=== PATIENT | male | born 2000 | race Caucasian/White ===

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

== ENCOUNTER 2022-01-25 18:36 | Emergency (ER) | payer BC, SELFPAY ==
--- NOTE | ~2022-01-25 | US_ITS ---
EXAMINATION: US scrotum doppler DATE: 01/25/2022 19:33 INDICATION: Bilateral testicular pain, r/o torsion . TECHNIQUE: Grayscale and Doppler ultrasound images of the testes were obtained. COMPARISON: None. FINDINGS: The right testis measures 5.4 x 2.0 x 3.4 5.2 x 2.0 x 3.2 cm. The left testis measures cm. No testicular mass. There is normal vascular flow to both testes. The right epididymis is normal with normal vascular flow. The left epididymis is normal with normal vascular flow. There is no varicocele or hydrocele IMPRESSION: Normal scrotal ultrasound findings. Reviewed, dictated and finalized at location K.
[2022-01-25 18:40] VITALS: BP 131/77; PULSE 98; RESP 18; TEMP 36.6; O2SAT 99
[2022-01-25 18:41] VITALS: BP 134/76; PULSE 84; RESP 16; TEMP 36.7; O2SAT 100
--- NOTE | 2022-01-25 19:31 | ED.MALEGU ---
HPI - Male Genitourinary General Chief complaint: Urogenital-Male Stated complaint: severe testicular pain Time Seen by Provider: 01/25/22 18:59 History of Present Illness HPI Narrative: 21-year-old male presents the emergency room for evaluation of bilateral testicular pain and dysuria. Patient states he has been experiencing bilateral testicular pain for 5 days, stating it has been progressively getting worse. Patient also comments that he began experiencing sharp pain when he voids. Patient reports he was having unprotected intercourse approximately 4 weeks ago. No injury or trauma to his testicles. Patient denies any penile discharge. Related Data Allergies Allergy/AdvReac Type Severity Reaction Status Date / Time No Known Allergies Allergy Verified 08/03/21 12:57 Review of Systems Review of Systems: CONSTITUTIONAL: Denies fever, chills, or sweats. EYES: Denies visual changes, redness, or discharge. ENT: Denies rhinorrhea, congestion, sore throat, or otalgia. CARDIOVASCULAR: Denies chest pain, palpitations, or edema. RESPIRATORY: Denies cough or dyspnea. GASTROINTESTINAL: Denies abdominal pain, nausea, vomiting, or diarrhea. GENITOURINARY: Reports dysuria SKIN: Denies rash or itching. MUSCULOSKELETAL: Denies back pain, joint pain, or myalgia. NEUROLOGIC: Denies headache, numbness, dizziness, or weakness. PSYCHIATRIC: Denies anxiety or depression. [facility] Past Medical History Medical History (Updated 01/25/22 @ 20:03 by Gustavo Lenz APRN) Right arm fracture Surgical History Surgical History No significant past surgical history Social History Social History Smoking status: Never smoker Exam Narrative: GENERAL: Well-appearing, well-nourished, no physical limitations, and in no acute distress. HEAD: Normocephalic, atraumatic. EYES: Conjunctivae normal, PERRLA and EOMI. CHEST: Clear to auscultation. No respiratory distress. No wheezes rales or rhonchi. HEART: Regular rate and rhythm. No murmur heard. Normal peripheral pulses. ABDOMEN: Soft, nontender, nondistended, normal active bowel sounds. : Normal external male exam. Negative Prehn sign. Positive cremasteric reflex bilaterally EXTREMITIES: Normal range of motion. No edema. No clubbing or cyanosis SKIN: Warm, dry, no rash. No noted wounds NEURO: No focal deficits. Alert and oriented x3. MAEW. CN's II-XI intact bilaterally, normal gait PSYCH: Cooperative. Normal mood and affect. Course Vital Signs Vital signs: Vital Signs Temperature 36.6 C 01/25/22 18:40 Pulse Rate 98 01/25/22 18:40 Respiratory Rate 18 01/25/22 18:40 Blood Pressure 131/77 01/25/22 18:40 Pulse Oximetry 99 01/25/22 18:40 Oxygen Delivery Room Air 01/25/22 18:40 Temperature 36.7 C 01/25/22 18:41 Pulse Rate 84 01/25/22 18:41 Respiratory Rate 16 01/25/22 18:41 Blood Pressure 134/76 01/25/22 18:41 Pulse Oximetry 100 01/25/22 18:41 Oxygen Delivery Room Air 01/25/22 18:41 MDM - Male Genitourinary Lab Data Labs: Lab Results 01/25/22 01/25/22 01/25/22 Range/Units 19:18 19:18 19:19 Urine Color Yellow (Yellow) Urine Appearance Cloudy H (Clear) Urine pH 9.0 (5.0-9.0) Ur Specific [place] 1.016 (1.001-1.035) Urine Protein Negative (Negative) mg/dL Urine Glucose (UA) Negative (Negative) mg/dL Urine Ketones Negative (Negative) mg/dL Ur Blood (Man) Negative (Negative) Urine Nitrate Negative (Negative) Urine Bilirubin Negative (Negative) Urine Urobilinogen Negative (<2.0) mg/dL Leukocyte Esterase Rfl Negative (Negative) JAYSON/UL Urine RBC 0-2 (0-2) /hpf Urine WBC 0-3 /hpf Urine Bacteria Trace /hpf Urine Mucus Rare /lpf C.trachomatis RNA (TMA) Pending N.gonorrhoeae RNA (TMA) Pending T. vaginalis Amp RNA Pending Discha
[2022-01-25 19:32] LABS: Add Urine Microscopic? YES; Appearance Urine Cloudy (Clear); Bacteria Urine Trace /hpf; Bilirubin Urine Negative (Negative); Blood Urine Negative (Negative); Color Urine Yellow (Yellow); Glucose Urine UA Negative (Negative); Ketones Urine Negative (Negative); Leukocyte Esterase Ur Negative LEU/UL (Negative); Mucus Urine Rare /lpf; Nitrate Urine Negative (Negative); Protein Urine Negative (Negative); RBC Urine 0-2 /hpf (0-2); Specific Grav Ur 1.016 (1.001-1.035); Urobilinogen Urine Negative mg/dL (<2.0); WBC Urine 0-3 /hpf
== END 2022-01-25 20:09 | disposition home or self-care (01) ==
PROVIDERS: Emergency Medicine; Emergency Provider Nurse Practitioner Family
DX: R30.0 Dysuria (principal); N50.812 Left testicular pain; N50.811 Right testicular pain
CPT/HCPCS: 76870; 81001; 87491; 87591; 87661; 93976; 99284

== ENCOUNTER 2022-11-03 07:50 | Observation (INO) | payer BC, SELFPAY ==
[2022-11-03] VITALS (21 sets, daily range): BP systolic 135–139; BP diastolic 62–74; PULSE 68–95; RESP 10–20; TEMP 36.6–36.8; O2SAT 97–100; BMI 27.5
--- NOTE | ~2022-11-03 | XR_ITS ---
EXAMINATION: XR UGI water soluble wo kub DATE: 11/03/2022 11:48 INDICATION: Right abdominal pain. TECHNIQUE: The patient drank water-soluble contrast. Fluoroscopy of the esophagus, stomach, and proxi mal small bowel was performed. Fluoroscopy exposure time was 0.5 minutes. The total number of images was 18. COMPARISON: CT abdomen and pelvis 11/03/2022 FINDINGS: There is no mass or stricture of the esophagus. Esophageal motility is normal. There is no hiatal hernia. The stomach and proximal small bowel show normal folding patterns. IMPRESSION: 1. Normal upper gastrointestinal series. Normal duodenum. Reviewed, dictated and finalized at location A.
--- NOTE | ~2022-11-03 | CT_ITS ---
EXAMINATION: CT abdomen pelvis w con DATE: 11/03/2022 09:38 INDICATION: Right lower quadrant abdominal pain for one day TECHNIQUE: Computed tomography (CT) of the abdomen and pelvis was performed with 100 CC Omnipaque 350 intravenous contrast. Automated exposure control and iterative reconstruction technique were employe d. Exam dose: 489.82 mGy-cm total exam DLP. COMPARISON: None. FINDINGS: The lung bases are clear. Normal heart size. No pericardial or pleural effusion. The liver, gallbladder, bile ducts, spleen, pancreas and pancreatic duct and adrenal glands appear no rmal. No renal space-occupying mass lesion is evident. There is subtle diminished enhancement of the anterior aspect of lower pole right kidney and posterio r upper right kidney. There is some adjacent perinephric stranding, apparently originating from the a scending colon/hepatic flexure where there is suggestion of diverticula tuberculosis. The findings gonzalez ggest diverticulitis of the ascending colon/hepatic flexure, with probable secondary inflammatory jackie nges of the kidney. Less likely considerations include duodenal ulcer with possible rupture, acute py elonephritis. No urinary tract calculus or hydroureteronephrosis. The urinary bladder and prostate gland and semina l vesicles are unremarkable, but there is mild free fluid in the dependent mid and right lower pelvis . Additionally, there are some shoddy nonenlarged mesenteric and right lower quadrant lymph nodes. The appendix is identified and appears unremarkable. No bowel obstruction or intraperitoneal free air. Normal caliber of the abdominal aorta. No intraperitoneal or retroperitoneal or pelvic mass lesion or adenopathy or ascites is noted. Bilateral L5 pars interarticularis defects. With associated grade 1 anterolisthesis at L5-S1. IMPRESSION: Pericolic fat stranding at the ascending colon/hepatic flexure, apparently due to divert iculitis; Differential diagnosis includes duodenal ulcer, with possible rupture, duodenitis, right py elonephritis. Mild free fluid in the mid and right pelvis. The appendix appears normal. Bilateral L5 pars interarticularis defects with grade 1 anterolisthesis at L5-S1 Reviewed, dictated and finalized at Location A. Reviewed, dictated and finalized at location L. IMPRESSION: Pericolic fat stranding at the ascending colon/hepatic flexure, ap parently due to diverticulitis; Differential diagnosis includes duodenal ulcer, with possible rupture, duodenitis, right pyelonephritis. Mild free fluid in the mid and right pelvis. The appendix appears normal. Bilateral L5 pars interarticularis defects with grade 1 anterolisthesis at L5-S 1
--- NOTE | 2022-11-03 08:23 | ED.ABDPAIN ---
HPI - Abdominal Pain General Chief Complaint: Abdominal Pain Stated Complaint: abd pain Time Seen by Provider: 11/03/22 08:02 History of Present Illness HPI narrative: Patient reports that yesterday morning he was having pretty severe pain throughout his entire abdomen, loss of appetite, he was able to eat very little last night, and this morning felt nauseous, pain was much better, though it did seem to go down to his right lower quadrant. No fevers or chills. Has never had appendicitis before Related Data Allergies Allergy/AdvReac Type Severity Reaction Status Date / Time No Known Allergies Allergy Verified 11/03/22 08:10 Review of Systems Review of Systems: CONST: No fever. HEENT: No sore throat C/V: No chest pain RESP: No cough GI: Reports abdominal pain, nausea, vomiting : No dysuria. M/S: No joint pain. SKIN: No rash. NEURO: [No headache or focal numbness or weakness] PSYCH: [No depression] [facility] Past Medical History Medical History (Updated 11/03/22 @ 11:34 by Haritha Garcia MD) Right arm fracture Surgical History Surgical History No significant past surgical history Social History Social History Smoking status: Never smoker Exam Narrative: EXAMINATION OF ORGAN SYSTEMS/BODY AREAS: Constitutional: Vital signs per nursing GENERAL:[No acute distress, non-toxic appearing.] HEAD: Normal with no signs of head trauma. EYES: EOMI, conjunctiva normal ENT: Hearing grossly intact LUNGS: Nonlabored breathing. HEART: [Regular rate and rhythm] ABD: [Soft], very minimally tender to deep palpation right abdomen, not peritonitic EXT: Normal range of motion SKIN: [No rashes or lesions.] NEURO: [Alert and oriented x 3. No gross focal sensory or strength deficits.] PSYCH: Normal affect Course Vital Signs Vital signs: Vital Signs Temperature 98.2 F 11/03/22 08:09 Pulse Rate 82 11/03/22 08:09 Respiratory Rate 16 11/03/22 08:09 Blood Pressure 138/62 11/03/22 08:09 Pulse Oximetry 99 11/03/22 08:09 Temperature 98.2 F 11/03/22 08:09 Pulse Rate 82 11/03/22 08:09 Respiratory Rate 16 11/03/22 08:09 Blood Pressure 138/62 11/03/22 08:09 Pulse Oximetry 99 11/03/22 08:09 MDM - Abdominal Pain MDM Narrative Medical decision making narrative: Electronic medical record was reviewed. Patient presented to the ED with complaint of [abdominal pain and vomiting, initially very severe yesterday all over and today has moved to the right side]. Vitals [were within acceptable limits]. Physical exam revealed soft abdomen, nonperitoneal, with some tenderness to the right side. Based on the patient's history and physical exam, my differential includes but is not limited to [gastritis, gastroenteritis, cholecystitis, pancreatitis, appendicitis]. [IV access was established by nursing staff. Patient was given zofran, IV fluids ]. CBC, BMP, lipase, LFTs, bilirubin and alk phos were obtained. Labs were pertinent for leukocytosis of 12.7, normal urinalysis]. [Decision was made to obtain a CT-abdomen to evaluate for acute abdominal process. CT-abdomen per radiology interpretation shows fat stranding at the ascending colon/hepatic flexure, apparently due to diverticulitis, cannot rule out ulcer with possible rupture, duodenitis, pyelonephritis.] Doubt pyelonephritis without urinary symptoms and normal UA, it seems very unlikely for diverticulitis given his age, I am more concerned about possible ulcer, I have called general surgery on-call Dr. Rodriguez who agrees to admission of the patient, recommend starting Zosyn, and obtaining upper GI series. I discussed the findings and plan with the patient who is agreeable to it. Family at bedside. Lab Data 11/03/22 08:36 11/03/22 08:36 Labs: Lab Results 11/03/22 11/03/22 Range/Units 08:36 08:38 WBC 12.7
[2022-11-03 08:44] LABS: Basophils Absolute Auto 0.1 K/mm3 (0.0-0.1); Basophils Percent Auto 0.6 % (0.2-1.2); Eosinophils Absolute Auto 0.4 K/mm3 (0-0.3); Hematocrit 46.2 % (42.0-52.0); Hemoglobin 14.9 g/dL (14.0-18.0); Immature Granulocyte Absolute 0.07 K/mm3 (0.00-0.031); Immature Granulocyte Percent A 0.6 % (0-0.5); Lymphocytes Absolute Auto 1.07 K/mm3 (0.9-3.2); Lymphocytes Percent Auto 8.5 % (18.3-44.2); Mean Corpuscular HGB Conc 32.3 g/dl (32-36); Mean Corpuscular Hemoglobin 28.5 pg (26-34); Mean Corpuscular Volume 88.3 fl (80-100); Mean Platelet Volume 9.4 fl (7.4-10.4); Monocytes Absolute Auto 1.5 K/mm3 (0.1-0.6); Monocytes Percent Auto 12.1 % (2.6-8.5); Neutrophils Absolute Auto 9.5 K/mm3 (1.3-6.7); Neutrophils Percent Auto 75.2 % (45.5-73.1); Platelet Count Result 343 k/mm3 (150-375); Red Blood Count 5.23 M/mm3 (4.6-6.20); Red Cell Distribution Width 13.2 % (11.5-14.5); White Blood Count 12.7 K/mm3 (4.5-10.0)
[2022-11-03 08:46] LABS: Appearance Urine Clear (Clear); Bilirubin Urine Negative (Negative); Blood Urine Negative (Negative); Color Urine Yellow (Yellow); Glucose Urine UA Negative (Negative); Ketones Urine 1+ mg/dL (Negative); Leukocyte Esterase Ur Negative LEU/UL (Negative); Nitrate Urine Negative (Negative); Protein Urine Negative (Negative); Specific Grav Ur 1.009 (1.001-1.035); Urobilinogen Urine 0.2 mg/dL (<2.0); pH Urine 5.5 (5.0-9.0)
[2022-11-03 08:51] LABS: Add Urine Microscopic? NO
[2022-11-03 08:54] LABS: Alanine Aminotransferase 31 U/L (6-50); Albumin Level 4.7 g/dL (3.7-5.6); Alkaline Phosphatase 87 U/L (58-237); Anion Gap 8 mmol/L (8-16); Aspartate Amino Transferase 33 U/L (17-59); Bilirubin,Total 0.8 mg/dL (0.2-1.3); Blood Urea Nitrogen 13 mg/dL (8-21); Calcium 9.3 mg/dL (8.9-10.7); Carbon Dioxide 28 mmol/L (22-30); Chloride 102 mmol/L (98-107); Estimated CRCL calculation 120 ml/min; Estimated Glomerular Filt Rate > 60; Glucose 98 mg/dL (65-110); Lipase 249 U/L (23-300); Potassium 3.8 mmol/L (3.4-5.0); Sodium 138 mmol/L (134-143)
[2022-11-03] MEDS: PIPERACILLN/TAZ 3.375GM/NS50ML 3.375 GM/50 ML BAG IVPB ×3 (11:43→23:47)
[2022-11-03] MEDS: ONDANSETRON INJ 4 MG/2 ML VIAL IV PUSH (12:18)
[2022-11-03] MEDS: LACTATED RINGERS 1,000 ML 999 ML IV CONT (12:18)
--- NOTE | 2022-11-03 12:53 | PC.NURSE ---
called admission report to JENNY Lacy for rm [id number] @[id number]
--- NOTE | 2022-11-03 13:38 | ADMGEN ---
This patient, Feliz Baron, was admitted to 3 [facility] Surg Room 312-01 at 1310. Patient/family oriented to hospital policies and general routines including ID bracelet, bed and alarms, visiting hours, pain management, procedures, bathroom and other care routines, personal items, smoking policy, room service/diet, and visiting hours. Information on how to activate the Rapid Response Team has been discussed. Patient/Family are encouraged to report perceived risks to care and to ask questions if they do not understand what they are told or what they should do.
[2022-11-03] MEDS: IBUPROFEN IV 800 MG/200 ML 800 MG/200 ML BAG 400 MG IVPB (15:39)
[2022-11-03] MEDS: LACTATED RINGERS 1,000 ML 80 ML IV CONT (18:46)
--- NOTE | 2022-11-03 21:44 | PM.IMHP ---
H&P: HPI History of Present Illness Date/Time: 11/03/22 16:44 Chief Complaint: abd pain Narrative: Patient is an 21-year-old man who yesterday morning noticed periumbilical abdominal pain right after he awakened. Pain was pretty severe but then became better. It never completely went away. He had some nausea but no vomiting. It improved enough that he was able to sleep but was awakened again this morning with the pain back and seeming to moved to the right lower quadrant. He was understandably concerned that he may have appendicitis and came to the emergency room. He received some ibuprofen in the emergency room and antibiotics. He was feeling much better when I went to see him this evening. He had had no appetite since this pain began yesterday but at this time is very hungry. He has very minimal periumbilical and right lower quadrant pain at this time. He had a CT scan of the abdomen pelvis which showed some inflammatory changes in the distal ascending colon and hepatic flexure. There was concern over duodenal ulcer or duodenal perforation. An upper GI was done which showed no evidence of ulcer or perforation. He is admitted now for probable hepatic flexure diverticulitis. Review of Systems Review of Systems: All systems reviewed & are unremarkable except as noted in HPI and below (HPI and those items noted below) Constitutional: Constitutional: Denies chills and Denies fever(s) Cardiovascular: Cardiovascular: Denies chest pain, Denies diaphoresis, Denies dyspnea and Denies paroxysmal nocturnal dyspnea Respiratory: Respiratory: Denies chest congestion, Denies cough and Denies dyspnea Gastrointestinal: Gastrointestinal: Reports as per HPI, Reports abdominal pain, Reports nausea and Denies vomiting Integumentary/Breasts: Skin/Breast: Denies lesions and Denies rash [facility] Past Medical History Medical History (Updated 11/03/22 @ 11:34 by Haritha Garcia MD) Right arm fracture Surgical History Surgical History No significant past surgical history Social History Social History Smoking status: Smoker, status unknown Tobacco type: e-cigarettes/vaping Alcohol intake: current Drinks per week: 20 Substance use: never Substance use type: does not use Lack of Transportation: No Lack of Food: Never True Current Housing: I Have Housing Concerned About Future Housing: No Difficulty Paying Gas/Electric Bills: No Difficulty Paying for Meds: No Currently Unemployed: No Education: High School Diploma/GED Difficulty w/ Childcare or Family Care: No Spiritual care concerns: No Meds Home Medications and Allergies Home Medications Medication Instructions Recorded Confirmed Type No Home Medications 11/03/22 11/03/22 History Allergies Allergy/AdvReac Type Severity Reaction Status Date / Time No Known Allergies Allergy Verified 11/03/22 08:10 Vital Signs Vital Signs - 24 hr 11/03/22 08:09 11/03/22 08:00 11/03/22 08:15 Temperature 36.8 C Pulse Rate 82 82 95 Respiratory Rate 16 14 15 Blood Pressure 138/62 Pulse Oximetry 99 100 Oxygen Delivery 11/03/22 08:30 11/03/22 09:43 11/03/22 09:45 Temperature Pulse Rate 88 94 94 Respiratory Rate 19 17 14 Blood Pressure Pulse Oximetry 100 97 Oxygen Delivery 11/03/22 10:07 11/03/22 10:15 11/03/22 10:31 Temperature Pulse Rate 81 87 78 Respiratory Rate 12 18 13 Blood Pressure Pulse Oximetry 99 100 98 Oxygen Delivery 11/03/22 10:49 11/03/22 11:01 11/03/22 11:15 Temperature Pulse Rate 73 71 68 Respiratory Rate 15 19 20 Blood Pressure Pulse Oximetry 97 97 99 Oxygen Delivery 11/03/22 11:43 11/03/22 11:46 11/03/22 12:02 Temperature Pulse Rate 85 84 91 Respiratory Rate 15 19 Blood Pressure Pulse Oximetry 100 100 100 Oxygen Delivery 11/03/22 12:19 10/16
[2022-11-04 07:39] LABS: Basophils Percent Auto 0.5 % (0.2-1.2); Eosinophils Absolute Auto 0.4 K/mm3 (0-0.3); Hematocrit 43.6 % (42.0-52.0); Hemoglobin 13.9 g/dL (14.0-18.0); Immature Granulocyte Absolute 0.01 K/mm3 (0.00-0.031); Immature Granulocyte Percent A 0.1 % (0-0.5); Lymphocytes Absolute Auto 1.91 K/mm3 (0.9-3.2); Lymphocytes Percent Auto 26.1 % (18.3-44.2); Mean Corpuscular HGB Conc 31.9 g/dl (32-36); Mean Corpuscular Hemoglobin 28.3 pg (26-34); Mean Corpuscular Volume 88.8 fl (80-100); Mean Platelet Volume 9.6 fl (7.4-10.4); Monocytes Absolute Auto 0.9 K/mm3 (0.1-0.6); Monocytes Percent Auto 11.9 % (2.6-8.5); Neutrophils Absolute Auto 4.1 K/mm3 (1.3-6.7); Neutrophils Percent Auto 55.4 % (45.5-73.1); Platelet Count Result 320 k/mm3 (150-375); Red Blood Count 4.91 M/mm3 (4.6-6.20); Red Cell Distribution Width 13.2 % (11.5-14.5); White Blood Count 7.3 K/mm3 (4.5-10.0)
[2022-11-04 07:54] LABS: Anion Gap 3 mmol/L (8-16); Blood Urea Nitrogen 9 mg/dL (8-21); Calcium 8.9 mg/dL (8.9-10.7); Carbon Dioxide 32 mmol/L (22-30); Chloride 103 mmol/L (98-107); Estimated CRCL calculation 108 ml/min; Estimated Glomerular Filt Rate > 60; Glucose 94 mg/dL (65-110); Potassium 4.1 mmol/L (3.4-5.0); Sodium 138 mmol/L (134-143)
[2022-11-04] MEDS: LACTATED RINGERS 1,000 ML 80 ML IV CONT (08:20)
[2022-11-04 08:30] VITALS: BP 132/64; PULSE 84; RESP 16; TEMP 36.6; O2SAT 100
[2022-11-04] MEDS: PIPERACILLN/TAZ 3.375GM/NS50ML 3.375 GM/50 ML BAG IVPB (12:17)
--- NOTE | 2022-11-04 13:15 | PM.DS ---
DS: Admitting Diagnosis Discharge Date 11/04/2022 Admitting Diagnosis Hepatic flexure diverticulitis DS: Discharge Diagnosis Discharge Diagnosis (1) Diverticulitis of ascending colon: Code(s): K57.32 - Diverticulitis of large intestine without perforation or abscess without bleeding Status: Acute DS: Summary Hospital Course Hospital Course: Patient came to the emergency room having experience periumbilical pain this seemed to moved to the right lower quadrant. He was noted to have mid abdominal tenderness and an elevated white blood cell count. CT scan, however, did not show appendicitis but rather showed inflammatory changes in the ascending colon and hepatic flexure of the colon suggestive of ascending colon diverticulitis. Patient received IV antibiotics and analgesics in the ER and was observed over night. His pain went away fairly quickly and on the day after admission he was completely pain-free eating solid food and having no problems at all. He is discharged now on 2002 on oral antibiotics and regular diet. He will follow up with Dr. Rodriguez if problems return otherwise he will return to work on Monday and follow up with his primary care physician as needed. Status at Discharge Overall status at discharge: patient is back to baseline Time Spent with Patient Time attestation: Total time spent providing and/or coordinating discharge services: Time spent: Less than 30 minutes DS: Data Data Completed and Pending Labs on day of discharge: Labs from last 24 hours 11/04/22 07:00 WBC 7.3 RBC 4.91 Hgb 13.9 L Hct 43.6 MCV 88.8 MCH 28.3 MCHC 31.9 L RDW 13.2 Plt Count 320 MPV 9.6 Immature Gran % (Auto) 0.1 Neut % (Auto) 55.4 Lymph % (Auto) 26.1 [place] % (Auto) 11.9 H Eos % (Auto) 6.0 H Baso % (Auto) 0.5 Lymph # (Auto) 1.91 [place] # (Auto) 0.9 H Eos # (Auto) 0.4 H Baso # (Auto) 0.0 Abs Immat Gran (auto) 0.01 Absolute Neuts (auto) 4.1 Absolute Nucleated RBC 0.0 Nucleated RBC % 0.0 Sodium 138 Potassium 4.1 Chloride 103 Carbon Dioxide 32 H Anion Gap 3 L BUN 9 Creatinine 1.00 Estim Creat Clear Calc 108 Estimated GFR > 60 Glucose 94 Calcium 8.9 Discharge Plan Discharge Discharging Clinician: Mil Rodriguez Anticipated Discharge Date/Time: 11/04/22 13:18 Patient Disposition: Home, Self-Care Activity: may shower and as tolerated Diet: regular Discharge Instructions: Resume normal activities as tolerated Take Augmentin oral antibiotics until they are gone Call Dr. Rodriguez or go to the emergency room if abdominal pain should recur. Okay to return to work on Monday. Regular diet with no restrictions at this time. Patient Instructions: Antibiotic Form, How to Stop Smoking (GEN) Stand Alone Forms: General Discharge Information Follow-up/Referrals: UNKNOWN,DOCTOR [Primary Care Provider] - Follow Up with Primary Dr (Call Dr. Rodriguez or go to the emergency room if abdominal pain should return.) Discharge Medications: New amoxicillin-pot clavulanate 875-125 mg tablet 1 tablet PO Q12H Qty: 12 0RF No Action No Home Medications Date of admission: 11/03/22 11:25 Primary Care Provider: UNKNOWN,DOCTOR Admitting Provider: Mil Rodriguez Attending physician on admission: Mil Rodriguez Condition: Improved
== END 2022-11-04 14:38 | disposition home or self-care (01) ==
LOC: ANHED 11:34 → ANH3MEDSUR 12:37
PROVIDERS: Admitting Provider Surgery; Emergency Provider Emergency Medicine; Visit Provider Surgery
DX: K57.32 Diverticulitis of large intestine without perforation or abscess without bleeding (principal); R63.0 Anorexia; Z68.53 Body mass index [BMI] pediatric, 85th percentile to less than 95th percentile for age; F17.290 Nicotine dependence, other tobacco product, uncomplicated; F10.90 Alcohol use, unspecified, uncomplicated
CPT/HCPCS: 36415; 74177; 74240; 80048; 80053; 81003; 83690; 85025; 96361; 96365; 96367; 96375; 99285; G0378; J1741; J2405; J2543; J7120; Q9967

== ENCOUNTER 2023-03-04 00:20 | Emergency (ER) | payer BC, SELFPAY ==
[2023-03-04] VITALS (33 sets, daily range): BP systolic 107–147; BP diastolic 55–95; PULSE 82–115; RESP 10–23; TEMP 36.6; O2SAT 98–100
--- NOTE | 2023-03-04 01:12 | PC.NURSE ---
Pt ambulatory to restroom with steady gait. Declines non slip socks or putting his shoes back on for safety.
--- NOTE | 2023-03-04 01:40 | ECG_ITS ---
Measurements Intervals [place] Rate: 94 P: 56 ME: 174 QRS: 87 QRSD: 98 T: 39 QT: 341 QTc: 427 Interpretive Statements SINUS RHYTHM NORMAL ECG NO PREVIOUS ECG AVAILABLE FOR COMPARISON Electronically Signed On 03-04-2023 7:41:14 BUSHEL WORKER by [place] Calderon D.O.
[2023-03-04 02:03] LABS: Appearance Urine Clear (Clear); Bilirubin Urine Negative (Negative); Blood Urine Negative (Negative); Color Urine Yellow (Yellow); Glucose Urine UA Negative (Negative); Ketones Urine Negative (Negative); Leukocyte Esterase Ur Negative LEU/UL (Negative); Nitrate Urine Negative (Negative); Protein Urine Negative (Negative); Specific Grav Ur 1.001 (1.001-1.035); Urobilinogen Urine 0.2 mg/dL (<2.0)
[2023-03-04 02:04] LABS: Basophils Absolute Auto 0.1 K/mm3 (0.0-0.1); Basophils Percent Auto 0.8 % (0.2-1.2); Eosinophils Absolute Auto 0.1 K/mm3 (0-0.3); Hematocrit 42.5 % (42.0-52.0); Immature Granulocyte Absolute 0.02 K/mm3 (0.00-0.031); Immature Granulocyte Percent A 0.2 % (0-0.5); Lymphocytes Absolute Auto 1.28 K/mm3 (0.9-3.2); Lymphocytes Percent Auto 14.1 % (18.3-44.2); Mean Corpuscular HGB Conc 32.9 g/dl (32-36); Mean Corpuscular Hemoglobin 27.9 pg (26-34); Mean Corpuscular Volume 84.8 fl (80-100); Mean Platelet Volume 9.2 fl (7.4-10.4); Monocytes Absolute Auto 0.9 K/mm3 (0.1-0.6); Monocytes Percent Auto 10.2 % (2.6-8.5); Neutrophils Absolute Auto 6.7 K/mm3 (1.3-6.7); Neutrophils Percent Auto 73.7 % (45.5-73.1); Platelet Count Result 384 k/mm3 (150-375); Red Blood Count 5.01 M/mm3 (4.6-6.20); Red Cell Distribution Width 12.8 % (11.5-14.5); White Blood Count 9.1 K/mm3 (4.5-10.0)
[2023-03-04 02:13] LABS: Acetaminophen < 10 ug/mL (10-30); Ethanol 90 mg/dL (<10); Salicylate < 1.0 mg/dL (2-20)
[2023-03-04 02:14] LABS: Alanine Aminotransferase 23 U/L (6-50); Albumin Level 4.6 g/dL (3.5-5.1); Alkaline Phosphatase 64 U/L (38-126); Anion Gap 9 mmol/L (8-16); Aspartate Amino Transferase 25 U/L (17-59); Bilirubin,Total 0.3 mg/dL (0.2-1.3); Blood Urea Nitrogen 10 mg/dL (9-20); Calcium 9.3 mg/dL (8.4-10.2); Carbon Dioxide 32 mmol/L (22-30); Chloride 96 mmol/L (98-107); Estimated CRCL calculation 137 ml/min; Estimated Glomerular Filt Rate > 60; Glucose 104 mg/dL (65-110); Potassium 3.5 mmol/L (3.4-5.0); Sodium 137 mmol/L (137-145)
[2023-03-04 02:23] LABS: Amphetamine Screen Urine Negative (Negative); Barbiturate Screen Urine Negative (Negative); Benzodiazepines Screen Urine Negative (Negative); Cannabinoid Screen Urine Negative (Negative); Cocaine Screen Urine Negative (Negative); Methadone Screen Urine Negative (Negative); Opiate Screen Urine Negative (Negative); Phencyclidine Screen Urine Negative (Negative)
[2023-03-04 02:38] LABS: SARS-CoV-2 RNA PCR Negative (Negative)
[2023-03-04 02:38] LABS: Add Urine Microscopic? NO
--- NOTE | 2023-03-04 06:20 | ED.GENADULT ---
HPI - General Adult General Chief complaint: Unspecified Stated complaint: possible od Time Seen by Provider: 03/04/23 05:13 Source: patient and family Limitations: no limitations History of Present Illness HPI narrative: Patient is a 22-year-old male presented to the emergency department for overdose. Patient received 8 mg of Narcan prior to arrival which may patient responsive again. Patient was who found slumped over by mom and mom administered Narcan with patient awake and oriented upon EMS arrival. Patient admits to snorting synthetic opioid earlier tonight, denies use of methadone. Patient also admits to drinking 4 shots of Tequila around the same time. Patient states he has a history of 0. Use and has been trying to get himself off it tried to quit approximately 4 days ago but he keeps experiencing symptoms of withdrawal so he takes a small amount and thinks he may have overdone at this time. Patient has never been on medication assisted therapy for. Patient does have a primary care physician. Patient denies thoughts of wanting to harm himself or intentional drug overdose. Patient denies any other medication use. Patient denies any recent injuries, recent illness, chest pain, shortness of breath, cough, fever, abdominal pain, nausea, vomiting, diarrhea, headache. Patient states he overall feels well at this time and does not have any current complaints. Patient denies ever having rehabilitation services. Related Data Allergies Allergy/AdvReac Type Severity Reaction Status Date / Time No Known Allergies Allergy Verified 11/03/22 08:10 Review of Systems Review of Systems: A 10 system review of systems was completed on the patient and is negative except for what is stated in the HPI. Nursing and ancillary documentation was reviewed. [facility] Past Medical History Medical History (Updated 03/05/23 @ 00:01 by Kaylie Light) Right arm fracture Surgical History Surgical History No significant past surgical history Social History Social History Smoking status: Smoker, status unknown Tobacco type: e-cigarettes/vaping Alcohol intake: current Drinks per week: 20 Substance use: never Substance use type: does not use Lack of Transportation: No Lack of Food: Never True Current Housing: I Have Housing Concerned About Future Housing: No Difficulty Paying Gas/Electric Bills: No Difficulty Paying for Meds: No Currently Unemployed: No Education: High School Diploma/GED Difficulty w/ Childcare or Family Care: No Spiritual care concerns: No Comments At time of signature, I have reviewed and agree with nursing past medical, surgical, social and family history unless otherwise noted. Please see the nursing chart for further information. There is no relevant family history pertinent to the presenting complaint. Exam Narrative: CONST: No acute distress. Well nourished. HENMT: Head is normocephalic and atraumatic. Moist mucous membranes. No posterior oropharynx erythema. EYES: No conjunctival icterus, injection, or pallor. PERRL. NECK: No meningeal signs. RESP: Able to speak in full sentences. Normal respiratory effort. CTAB. CARDIO: Regular rate. Regular rhythm. 2+ DP and radial pulses bilaterally. GI: Nondistended. No tenderness to palpation. Soft. : No CVA tenderness to palpation. SKIN: No rashes or lesions noted on exposed skin. NEURO: Oriented x3. Moves all extremities. EXTREM/MSK/BACK: No pedal edema. PSYCH: Normal affect. Course Vital Signs Vital signs: Vital Signs Temperature 97.9 F 03/04/23 00:20 Pulse Rate 115 H 03/04/23 00:20 Respiratory Rate 20 03/04/23 00:20 Blood Pressure 146/78 H 03/04/23 00:20 Pulse Oximetry 100 03/04/23 00:20 Oxygen Delivery Room Air 03/04/23 00:20 Temperature 97.9 F 03/04/23 00:20 Pulse Rate 91
== END 2023-03-04 06:46 | disposition home or self-care (01) ==
PROVIDERS: Emergency Provider Student in an Organized Health Care Education/Training Program
DX: T42.71XA Poisoning by unspecified antiepileptic and sedative-hypnotic drugs, accidental (unintentional), initial encounter (principal); F17.290 Nicotine dependence, other tobacco product, uncomplicated; Z11.52 Encounter for screening for COVID-19
CPT/HCPCS: 36415; 80053; 80307; 81003; 84443; 85025; 87635; 93005; 99284

== ENCOUNTER 2024-05-27 16:12 | Emergency (ER) | payer BC, SELFPAY ==
--- OUTSIDE RECORDS SUMMARY | 2024-05-27 16:31 | XMS_ITS | Patient Health Summary ---
Author Organization [facility] Address [address] [place] [address] Care Team Providers Care Risk Consulting Treasury Director Name Role Phone Gemma Yap MD Primary Care Provider + Gemma Yap MD Unavailable [phone] Charanjit Beckwith MD Unavailable Note from [facility],non-owned Affiliates and Associated Physician Practices is amultiple site organization consisting of ambulatory clinics and hospital sitesin [place], [place], [place] and [place]. This disclosure is being madepursuant to the Care Everywhere program and may not contain all information available regarding this patient. Last updated 18.[facility] Allergies No known active allergies Medications * Be aware that medications may not be up to date on this document. Alwaysverify current medications with the patient. * cetirizine (ZYRTEC) 10 MG chew tablet Take 10 mg by mouth once daily * minocycline (MINOCIN) 100 MG capsule Take 100 mg by mouth once daily Reasons: Common Acne * SULFACLEANSE 8/ 8-4 %(Started 09/02/2019) * EPIDUO FORTE 0.3-2.5 %(Started 09/12/2019) Active Problems Problem Noted Date Diagnosed Date Closed fracture of lower end of right radius with routine healing 01/26/2017 Closed fracture of radius 12/20/2016 Peripheral tear of medial me niscus of right knee as current injury Immunizations * INFLUENZA VACCINE, TRIV. (AFLURIA, FLUZONE TRIVALENT; 6MO+) (IIV3)(Given 03/20/2007, 02/13/2006, 02/10/2005, 04/14/2004, 03/16/2004) * DTaP VACCINE IM (6wk-6yrs)(Given 12/18/2007, 03/16/2004, 06/09/2003, 04/08/2003, 02/11/2003) * HEP A PEDS 2 DOSE(Given 02/13/2006, 12/07/2004) * HEP B VACCINE, PED/ADOL(Given 06/09/2003, 01/14/2003, 2002) * HIB-PRP-T 4 DOSE(Given 03/16/2004, 12/11/2003, 06/09/2003, 04/08/2003, 02/11/2003) * Human Papilloma Virus Ninevalent Vaccine(Given 10/27/2015, 02/21/2015, 11/27/2014) * INFLUENZA VACCINE, QUADR. (FLUZONE; FLULAVAL; FLUARIX; AFLURIA QUADRIVALENT; 6MO+), 0.5 ML (IIV4)(Given 01/26/2017, 01/25/2016, 02/21/2015) * BARBARA VACCINE QUAD LAIV4 PF NASAL(Given 01/27/2014, 02/12/2013) * MENINGOCOCCAL CONJUGATE (MCV4P)(Given 12/11/2019) * MENINGOCOCCAL MCV4O(Given 01/27/2014) * MMR(Given 12/18/2007, 03/16/2004) * PNEUMOCOCCAL PCV7 CONJ, PEDS(Given 12/11/2003, 06/09/2003, 04/08/2003, 02/11/2003) * POLIO IPV(Given 12/18/2007, 04/08/2003, 02/11/2003) * TDAP (7yrs+)(Given 01/27/2014) * VARICELLA(Given 12/18/2007, 12/11/2003) Social History Tobacco Use Types Packs/Day Years Used Date Smoking Tobacco: Never Smokeless Tobacco: Never Comments:non smoking home Alcohol Use Standard Drinks/Week Comments Never 0 (1 standard drink = 0.6 oz pur e alcohol) AUDIT-C Answer Date Recorded Q1: How often do you have a drink containing alc ohol? Never 11/05/2019 Average Number of Drinks Not on file 020 Frequency of Binge Drinking Not on file 10/16 Sex and Gender Information Value Date Recorded Sex Assigned at Not on file Gender Identity Not on file Sexual Orientation Not on file Last Filed Vital Signs Vital Sign Reading Time Taken Comments Blood Pressure 110/66 11/22/2020 12:40 PM CDT Pulse 82 11/22/2020 12:40 PM CDT Temperature 37 C (98.6 F) 11/22/2020 12:40 PM CDT Respiratory Rate 18 11/22/2020 12:40 PM CDT Oxygen Saturation 99% 11/19/2019 11:02 AM CDT Inhaled Oxygen Concentration - - Weight 72.6 kg (160 lb) 11/22/2020 12:40 PM CDT Height 180.3 cm (5' 11 ) 11/22/2020 12:40 PM CDT Body Mass Index 22.32 11/22/2020 12:40 PM CDT Medical Devices Implanted Type Area Tyre Finisher And Examiner Device Identifier Shelf Expiration Date Model / Serial / Lot Oral Sut Truespan Othcrd Peek Nabsb 2 Implanted:Qty: 3 on 11/07/2019 by Charanjit Beckwith MD at [facility] [employer] 03/16/2022 [id number] / / [id number] Procedures * MRI KNEE RIGHT WO CONTRAST(Performed 11/13/2020) Performed for Peripheral tear of medial meniscus of right knee as current injury, subsequent encounter * ARTHROSCOPY KNEE WITH MENISCECTOMY (MEDIAL/LATERAL)(Performed 11/07/2019) Performed for Peripheral tear of medial meniscus of right knee as current injury, sequela * LARYNGEAL MASK AIRWAY(Performed 11/07/2019) * SARS-COV-2 (COVID-19) IN HOUSE(Performed 11/04/2019) Performed for Peripheral tear of medial meniscus of right knee as current injury, initial encounter * MRI KNEE RIGHT WO CONTRAST(Performed 10/21/2019) Performed for Acute pain of right knee * XR KNEE RIGHT 4VW OR MORE(Performed 10/11/2019) Performed for Acute pain of right knee * INFLUENZA A+B - POINT OF CARE (AMB)(Performed 04/30/2017) Performed for Influenza * IMAGING/RADIOLOGY/XRAY RESULTS ORDER(Performed 02/14/2017) * IMAGING/RADIOLOGY/XRAY RESULTS ORDER(Performed 01/11/2017) * IMAGING/RADIOLOGY/XRAY RESULTS ORDER(Performed 01/11/2017) * XR WRIST RIGHT 2VW(Performed 01/04/2017) Performed for Other closed fracture of distal end of right radius with routine healing, subsequent encounter * XR WRIST RIGHT 2VW(Performed 12/12/2016) Performed for Injury, other and unspecified, elbow, forearm, and wrist * XR WRIST RIGHT 3VW OR MORE(Performed 12/12/2016) Performed for Injury, other and unspecified, elbow, forearm, and wrist Results * MRI KNEE RIGHT WO CONTRAST (11/13/2020 7:33 AM CDT) Only the most recent of2 resultswithin the time period is included. Anatomical Region Laterality Modality Lower Extremity Magnetic Resonan ce 11/13/2020 6:53 AM CDT Impressions 11/13/2020 9:23 AM CDT Posterior horn medial meniscal tear. Appearance may be in part postsurgical if applicable. Reading Radiologist: Yunier Crockett on 11/13/2020 at 9:23 AM Narrative 11/13/2020 9:23 AM CDT INDICATION: Meniscal tear COMPARISON: 10/21/2019 TECHNIQUE: Multiplanar, multisequence MR images of the right knee. FINDINGS: There is no fracture or abnormal bone marrow signal. The articular cartilage has normal signal and thickness. The anterior and posterior cruciate ligaments are intact. The medial collateral ligament is normal. The lateral collateral ligament and posterolateral corner structures are intact. There is a tear of the posterior horn of the medial meniscus extending to the inferior surface. Lateral meniscus appears intact. The extensor mechanism is intact. There is a small joint effusion. Procedure Note Yunier Crockett, - 11/13/2020 INDICATION: Meniscal tear COMPARISON: 10/21/2019 TECHNIQUE: Multiplanar, multisequence MR images of the right knee. FINDINGS: There is no fracture or abnormal bone marrow signal. The articularcartilage has normal signal and thickness. The anterior and posterior cruciate ligaments are intact. The medial collateral ligament is normal. The lateral collateral ligamentand posterolateral corner structures are intact. There is a tear of the posterior horn of the medial meniscus extending tothe inferior surface. Lateral meniscus appears intact. The extensor mechanism is intact. There is a small joint effusion. IMPRESSION Posterior horn medial meniscal tear. Appearance may be in partpostsurgical if applicable. Reading Radiologist: Yunier Crockett on 11/13/2020 at 9:23 AM Charanjit Beckwith MD MR ORDERABLES * LARYNGEAL MASK AIRWAY (11/07/2019 10:33 AM CDT) Narrative Anna Banerjee APRN-NURSE SUPERVISOR - 11/07/2019 10:33 AM CDT Anna Banerjee APRN-CRNA 11/07/2019 11:30 AM LMA Placement Procedure/LDA Note: Patient Location: OR. LMA Insertion Date/Time: 11/07/2019 10:21 AM Procedure: LMA. Pretreatment: 100% O2 Patient position: sniffing. Mask Ventilation: easy Type: LMA Size: 4 Number of Attempts: 1. Cuff volume (mL): 10 Placement verified by: direct visualization, bilateral breath sounds and CO2 monitor Procedure Start Time: 11/07/2019 10:21 AM. Procedure End Time: 11/07/2019 11:30 AM. Procedure Total Time: 69.03 minutes. Staff Section Anesthesia Provider: Anna Banerjee, NOAH-NURSE SUPERVISOR, Performed the procedure Provider #1: Odell Llanes MD, Performed the procedure. Odell Llanes MD GENERAL ANESTHESIA ORDERABLES * SARS-COV-2 (COVID-19) IN HOUSE (11/04/2019 7:38 AM CDT) COVID-19 PCR Not detected Not detected, Invalid 11/04/2019 2:15 PM CDT [facility] Microbiology SPECIMEN FROM NASOPHARYNGEAL STRUCTURE / Unknown Collection / Unknown 11/04/2019 7:38 AM CDT 11/04/2019 7:38 AM CDT Narrative [facility] - 11/04/2019 2:15 PM CDT This nucleic acid amplification assay performance was validated by [facility]. This test has been authorized by the Food and Drug administration (FDA)under an Emergency Use Authorization (EUA). This test has been validated in accordance with the FDA's guidance document Policy for Diagnostic Testing in Laboratories Certified to perform High Complexity Testing under CLIA prior to Emergency Use Authorization for Coronavirus Disease-2019 during the Public Health Emergency issued on June 15, 2019. FDA independent review of this validation is pending. This test is only authorized for the duration of time the declaration that circumstances exist justifying the authorization of emergency use of in vitro diagnostic tests for detection of SARS-CoV-2 virus and/or diagnosis of COVID-19 infection under section 564(b)(1) of the Act, 21 U.S.C 360bbb-3 (b)(1), unless the authorization is terminated or revoked sooner. Charanjit Beckwith MD LAB - MICROBIOLOGY O RDERABLES [facility] [address] [place] [address], [facility] [phone] * XR KNEE RIGHT 4VW OR MORE (10/11/2019 2:13 PM CDT) Anatomical Region Laterality Modality Lower Extremity Radiographic [place] 10/11/2019 4:14 PM CDT Impressions 10/11/2019 4:17 PM CDT Right knee effusion without fracture or other bony abnormality. >>Reading Radiologist: BERTO ANNE on 10/11/2019 at 4:17 PM Narrative 10/11/2019 4:17 PM CDT CLINICAL HISTORY: Pain in right knee COMPARISON: None PROCEDURE: 4 views of the right knee FINDINGS: Normal alignment. No fracture or other bony abnormality. A knee effusion is present. The soft tissues are otherwise normal. Procedure Note Berto Anne MD - 10/11/2019 CLINICAL HISTORY: Pain in right knee COMPARISON: None PROCEDURE: 4 views of the right knee FINDINGS: Normal alignment. No fracture or other bony abnormality. A knee effusion is present. The soft tissues are otherwise normal. IMPRESSION Right knee effusion without fracture or other bony abnormality. >>Reading Radiologist: BERTO ANNE on 10/11/2019 at 4:17 PM Charanjit Beckwith MD DIAGNOSTIC IMAGING O RDERABLES * (ABNORMAL) INFLUENZA A+B - POINT OF CARE (AMB) (04/30/2017) Influenza A Antigen Rapid Positive(A) Negative Influenza B Antigen Rapid Negative Negative Influenza Internal Control present NEGATIVE - POSITIVE Influenza Lot Number [id number] Influenza Expiration Date 01 09 2019 Other NASOPHARYNGEAL SWAB / Unknown 04/30/2017 Estela Easley ICT SALES ASSISTANT-DIRECTOR OF MARKETING LAB - POINT OF CARE ORDERABLES * IMAGING/RADIOLOGY/XRAY RESULTS ORDER (02/14/2017 11:49 PM CDT) Only the most recent of3 resultswithin the time period is included. Anatomical Region Laterality Modality Other Narrative 02/14/2017 11:49 PM CDT Ordered by an unspecified provider. Scanned Document IMAGING * XR WRIST 2 VW RIGHT (01/04/2017 9:34 PM CDT) Only the most recent of2 resultswithin the time period is included. Anatomical Region Laterality Modality Wrist / Hand Radio Fluoroscop y 01/05/2017 8:22 AM CDT Impressions 01/05/2017 8:24 AM CDT Healing distal radial metadiaphyseal fracture with increased displacement and angulation. Minimally displaced ulnar styloid fracture. Narrative 01/05/2017 8:24 AM CDT EXAMINATION: Right wrist 2 views HISTORY: Radius and ulna fractures. COMPARISON: 12/12/2016. FINDINGS: 2 collimated fluoroscopic spot images of the wrist are submitted for interpretation. The distal radial metadiaphyseal fracture is mildly angulated and displaced, increased since the prior examination. The distal fracture fragment is dorsally angulated and displaced. The distal fracture fragment is also minimally radially displaced. Callus formation is now seen at the fracture site, consistent with healing. A minimally displaced ulnar styloid fracture is reidentified. Procedure Note Janna Benitez MD - 01/05/2017 EXAMINATION: Right wrist 2 views HISTORY: Radius and ulna fractures. COMPARISON: 12/12/2016. FINDINGS: 2 collimated fluoroscopic spot images of the wrist are submitted for interpretation. The distal radial metadiaphyseal fracture is mildly angulated and displaced, increased since the prior examination. The distal fracture fragment is dorsally angulated and displaced. The distal fracture fragment is also minimally radially displaced. Callus formation is now seen at the fracture site, consistent with healing. A minimally displaced ulnar styloid fracture is reidentified. IMPRESSION Healing distal radial metadiaphyseal fracture with increased displacement and angulation. Minimally displaced ulnar styloid fracture. Mushtaq Roman MD DIAGNOSTIC IMAGIN G ORDERABLES * XR WRIST 3+ VW RIGHT (12/12/2016 9:45 PM CDT) Anatomical Region Laterality Modality Wrist / Hand Radiographic [place] 2016 7:33 AM CDT Impressions 2016 7:35 AM CDT 1. Mildly displaced distal radial metadiaphyseal fracture. 2. Nondisplaced ulnar styloid fracture. Narrative 2016 7:35 AM CDT EXAMINATION: Right wrist 3 or more views HISTORY: Soccer injury. COMPARISON: None. FINDINGS: Three-view examination of the right wrist is obtained. A mildly displaced and angulated distal radial metadiaphyseal fracture is identified. The distal fracture fragment is radially and dorsally displaced by approximately one cortical width and is minimally dorsally angulated. A nondisplaced ulnar styloid fracture is also identified. There is mild associated soft tissue edema. The joint spaces are normal. There are no radiopaque foreign bodies. Procedure Note Janna Benitez MD - 2016 EXAMINATION: Right wrist 3 or more views HISTORY: Soccer injury. COMPARISON: None. FINDINGS: Three-view examination of the right wrist is obtained. A mildly displaced and angulated distal radial metadiaphyseal fracture is identified. The distal fracture fragment is radially and dorsally displaced by approximately one cortical width and is minimally dorsally angulated. A nondisplaced ulnar styloid fracture is also identified. There is mild associated soft tissue edema. The joint spaces are normal. There are no radiopaque foreign bodies. IMPRESSION 1. Mildly displaced distal radial metadiaphyseal fracture. 2. Nondisplaced ulnar styloid fracture. Logan Mooney MD DIAGNOSTIC IMAGING O [facility] Care Teams Risk Consulting Treasury Director Relationship Specialty [place] [id number] [facility] [address] [place] [address] PCP - General Pediatrics 10/11/19 [place] [id number] [facility] [address] [place] [address] 10/11/19 [place] [id number] [facility] [address] [place], [place] [id number] Orthopedic Surgery Orthopedic Surgery 10/11/19
--- OUTSIDE RECORDS SUMMARY | 2024-05-27 16:31 | XMS_ITS | Encounter Summary ---
Author Organization [facility] Address [address] [place] [address] Care Team Providers Care Trust Accounts Supervisor Name Role Phone Gemma Yap MD Primary Care Provider + Encounter Details Date Type Department Care Team (Late [facility]) Description 03/16/2004 Outpatient [facility] Pediatrics - [facility] [address] [id number] [facility] [address] [place] [address] Keegan Bartlett MD [address] [place] [address] Social History Tobacco Use Types Packs/Day Years Used Date Smoking Tobacco: Never Assessed Sex and Gender Information Value Date Recorded Sex Assigned at Not on file Legal Sex Male 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 Gender Identity Not on file Sexual Orientation Not on file documented as of this encounter Plan of Treatment Not on file documented as of this encounter Visit Diagnoses Not on filedocumented in this encounter Additional Health Concerns Infection Onset Date Last Indicated Resolved Time R/O COVID-19 03/09/2020 03/09/2020 03/11/2020 2:31 AM PURCHASING CONTRACTING CLERK documented as of this encounter Care Teams Trust Accounts Supervisor Relationship Specialty [place] [id number] [facility] [address] [place] [address] PCP - General Pediatrics 05/22/18 documented as of this encounter
--- OUTSIDE RECORDS SUMMARY | 2024-05-27 16:31 | XMS_ITS | Encounter Summary ---
Author Organization [facility] Address [address] [place] [address] Care Team Providers Care Public Address Technician Name Role Phone Gemma Yap MD Primary Care Provider + Encounter Details Date Type Department Care Team (Late st [facility]) Description 08/06/2003 Outpatient [facility] - [facility] [address] [id number] [facility] [address] [place] [address] Keegan Bartlett MD [address] [place] [address] Social History Tobacco Use Types Packs/Day Years Used Date Smoking Tobacco: Never Assessed Sex and Gender Information Value Date Recorded Sex Assigned at Not on file Legal Sex Male 4:44 AM CENTRALIZED TRAFFIC CONTROL OPERATOR Gender Identity Not on file Sexual Orientation Not on file documented as of this encounter Plan of Treatment Not on file documented as of this encounter Visit Diagnoses Not on filedocumented in this encounter Additional Health Concerns Infection Onset Date Last Indicated Resolved Time R/O COVID-19 03/09/2020 03/09/2020 03/11/2020 2:31 AM CENTRALIZED TRAFFIC CONTROL OPERATOR documented as of this encounter Care Teams Public Address Technician Relationship Specialty [place] [address] [facility] [address] [place] [address] PCP - General Pediatrics 05/22/18 documented as of this encounter
--- OUTSIDE RECORDS SUMMARY | 2024-05-27 16:31 | XMS_ITS | Clinical Summary ---
Author Organization [facility] Address [address] [facility] [place] [address] Care Team Providers Care Literacy Teacher Name Role Phone Gemma Yap MD Primary Care Provider + Gemma Yap MD Unavailable [phone] Charanjit Beckwith MD Unavailable Source Comments [facility],non-owned Affiliates and Associated Physician Practices is amultiple site organization consisting of ambulatory clinics and hospital sitesin [place], [place], [place] and [place]. This disclosure is being madepursuant to the Care Everywhere program and may not contain all information available regarding this patient. Last updated 18.[facility] Allergies No known active allergies Medications * Be aware that medications may not be up to date on this document. Alwaysverify current medications with the patient. Medication Sig Dispensed Refills Start Date End Date Status cetirizine (ZYRTEC) 10 MG chew tablet Take 10 mg by mouth once daily Active minocycline (MINOCIN) 100 MG capsuleIndications:Acn e Vulgaris Take 100 mg by mouth once daily Reasons: Common Acne Active SULFACLEANSE 8/4 8-4 % 09/02/2019 Ac tive EPIDUO FORTE 0.3-2.5 % 09/12/2019 Ac tive Active Problems Problem Noted Date Diagnosed Date Closed fracture of lower end of right radius with routine healing 01/26/2017 Closed fracture of radius 12/20/2016 Peripheral tear of medial me niscus of right knee as current injury Immunizations Name Administration Dates Next Due INFLUENZA VACCINE, TRIV. (AF LURIA, FLUZONE TRIVALENT; 6MO+) (IIV3) 03/20/2007,02/13/2006,02/10/2005,04/14,03/16/2004 DTaP VACCINE IM (6wk-6yrs) 12/18/2007,,06/09/2003,04/08,02/11/2003 HEP A PEDS 2 DOSE 02/13/2006,12/07/2004 HEP B VACCINE, PED/ADOL 06/09/2003,01/14/2003, HIB-PRP-T 4 DOSE 03/16/2004, 4,06/09/2003,04/08,02/11/2003 Human Papilloma Virus Nineva lent Vaccine 10/27/2015,02/21/2015,11/27/2014 INFLUENZA VACCINE, QUADR. (F LUZONE; FLULAVAL; FLUARIX; AFLURIA QUADRIVALENT; 6MO+), 0.5 ML (IIV4) 01/26/2017,01/25/2016,02/21/2015 BARBARA VACCINE QUAD LAIV4 PF NASAL 01/27/2014,2012 MENINGOCOCCAL CONJUGATE (MCV4P) 12/11/2019 MENINGOCOCCAL MCV4O 01/27/2014 MMR 12/18/2007,03/16/2004 PNEUMOCOCCAL PCV7 CONJ, PEDS 12/11/2003, 06/09/2003,04/08/2003,02/11 POLIO IPV 12/18/2007,04/08/2003,02/11/2003 TDAP (7yrs+) 01/27/2014 VARICELLA 12/18/2007,12/11/2003 Family History Relation Name Status Comments Father Alive Mother Alive Social History Tobacco Use Types Packs/Day Years [...] Mass Index 22.32 11/22/2020 12:40 PM CDT Plan of Treatment Health Maintenance Due Date Last Done Comments HIV SCREENING 2017 MENINGOCOCCAL (Group B) VACC INE (1 of 2 - Standard) 2018 HEPATITIS C SCREENING 12/08/2020 COVID-19 VACCINE (2023-2 5 season) 2023 INFLUENZA VACCINE (#1) 2023 , 01/25/2016, 02/21/2015, Additional history exists DTAP/TDAP/TD VACCINES (7 - T d or Tdap) 01/28/2024 01/27/2014, 12/18/2007, 03/16/2004, Additional history exists DEPRESSION SCREENING 04/17/2024 ZOSTER VACCINE (1 of 2) 2052 HEPATITIS B VACCINE Completed 06/09/2003, 01/14/2003, 2002 PNEUMOCOCCAL VACCINE Completed 12/11/2003, 06/09/2003, 04/08/2003, Additional history exists HIB VACCINE Completed 03/16/2004, 11/16, 06/09/2003, Additional history exists HPV VACCINE Completed 10/27/2015, 10/2014, 11/27/2014 MENINGOCOCCAL VACCINE Completed 12/11/2019, 014 Medical Devices Implanted Type Area Manager Embalmer Funeral Director Device Identifier Shelf Expiration Date Model / Serial / Lot [place] Sut Truespan Othcrd Peek Nabsb 2 Implanted:Qty: 3 on 11/07/2019 by Charanjit Beckwith MD at [facility] [employer] 03/16/2022 [id number] / / [id number] Care Teams Literacy Teacher Relationship Specialty [place] [address] [address] PCP - General Pediatrics 10/11/19 [place] [address] [address] 10/11/19 [place] [address] [address] Orthopedic Surgery Orthopedic Surgery 10/11/19
--- OUTSIDE RECORDS SUMMARY | 2024-05-27 16:31 | XMS_ITS | Encounter Summary ---
Author Organization [facility] Address [address] [place] [address] Care Team Providers Care Program Specialist Name Role Phone Gemma Yap MD Primary Care Provider + Encounter Details Date Type Department Care Team (Late st [facility]) Description 06/09/2003 Outpatient [facility] Pediatrics - [facility] [address] [address] [facility] [address] [place] [address] Keegan Bartlett MD [address] [place] [address] Social History Tobacco Use Types Packs/Day Years Used Date Smoking Tobacco: Never Assessed Sex and Gender Information Value Date Recorded Sex Assigned at Not on file Legal Sex Male 4:44 AM MID TEACHER Gender Identity Not on file Sexual Orientation Not on file documented as of this encounter Plan of Treatment Not on file documented as of this encounter Visit Diagnoses Not on filedocumented in this encounter Additional Health Concerns Infection Onset Date Last Indicated Resolved Time R/O COVID-19 03/09/2020 03/09/2020 03/11/2020 2:31 AM MID TEACHER documented as of this encounter Care Teams Program Specialist Relationship Specialty [place] [address] [facility] [address] [place] [address] PCP - General Pediatrics 05/22/18 documented as of this encounter
--- OUTSIDE RECORDS SUMMARY | 2024-05-27 16:31 | XMS_ITS | Encounter Summary ---
Author Organization [facility] Address [address] [place] [address] Care Team Providers Care Plumber Assistant Name Role Phone Gemma Yap MD Primary Care Provider + Encounter Details Date Type Department Care Team (Late st [facility]) Description 2002 Outpatient Historical [facility] Pediatrics - [facility] [address] [address] [facility] [address] [place] [address] Keegan Bartlett MD [address] [place] [address] Social History Tobacco Use Types Packs/Day Years Used Date Smoking Tobacco: Never Assessed Sex and Gender Information Value Date Recorded Sex Assigned at Not on file Legal Sex Male 4:44 AM SHIP LINER Gender Identity Not on file Sexual Orientation Not on file documented as of this encounter Plan of Treatment Not on file documented as of this encounter Visit Diagnoses Not on filedocumented in this encounter Additional Health Concerns Infection Onset Date Last Indicated Resolved Time R/O COVID-19 03/09/2020 03/09/2020 03/11/2020 2:31 AM SHIP LINER documented as of this encounter Care Teams Plumber Assistant Relationship Specialty [place] [address] [facility] [address] [place] [address] PCP - General Pediatrics 05/22/18 documented as of this encounter
--- OUTSIDE RECORDS SUMMARY | 2024-05-27 16:31 | XMS_ITS | Encounter Summary ---
Author Organization [facility] Address [address] [place] [address] Care Team Providers Care Development Manager Name Role Phone Gemma Yap MD Primary Care Provider + Encounter Details Date Type Department Care Team (Late st Contact Info) Description 07/10/2006 Outpatient Historical [facility] Pediatrics - [facility] [address] [address] [facility] [address] [place] [address] Keegan Bartlett MD [address] [place] [address] Social History Tobacco Use Types Packs/Day Years Used Date Smoking Tobacco: Never Assessed Sex and Gender Information Value Date Recorded Sex Assigned at Not on file Legal Sex Male 4:44 AM IN SERVICE EDUCATOR Gender Identity Not on file Sexual Orientation Not on file documented as of this encounter Last Filed Vital Signs Vital Sign Reading Time Taken Comments Blood Pressure - - Pulse 120 07/10/2006 9:45 AM CDT Temperature 37.6 C (99.7 F) 07/10/2006 9:45 AM CDT Respiratory Rate 28 07/10/2006 9:45 AM CDT Oxygen Saturation - - Inhaled Oxygen Concentration - - Weight 16.8 kg (37 lb) 07/10/2006 9:45 AM CDT Height - - Body Mass Index - - documented in this encounter Plan of Treatment Not on file documented as of this encounter Visit Diagnoses Not on filedocumented in this encounter Additional Health Concerns Infection Onset Date Last Indicated Resolved Time R/O COVID-19 03/09/2020 03/09/2020 03/11/2020 2:31 AM IN SERVICE EDUCATOR documented as of this encounter Care Teams Development Manager Relationship Specialty [place] [address] [facility] [address] [place] [address] PCP - General Pediatrics 05/22/18 documented as of this encounter
--- OUTSIDE RECORDS SUMMARY | 2024-05-27 16:31 | XMS_ITS | Referral Summary ---
Author Organization [facility] Address [address] [facility] [place] [address] Care Team Providers Care Supply Teacher Name Role Phone Gemma Yap MD Primary Care Provider + Gemma Yap MD Unavailable [phone] Charanjit Beckwith MD Unavailable Source Comments [facility],non-owned Affiliates and Associated Physician Practices is amultiple site organization consisting of ambulatory clinics and hospital sitesin [place], [place], [place] and [place]. This disclosure is being madepursuant to the Care Everywhere program and may not contain all information available regarding this patient. Last updated 18.[facility] Allergies No known active allergies Medications * [...] IPV 12/18/2007,04/08/2003,02/11/2003 TDAP (7yrs+) 01/27/2014 VARICELLA 12/18/2007,12/11/2003 Social History Tobacco Use Types Packs/Day Years [...] Mass Index 22.32 11/22/2020 12:40 PM CDT Functional Status Functional Status Response Date of Assess ment Is person deaf or have serious hearing difficult y? No 11/07/2019 Is person blind or have serious difficulty seein g? No 11/07/2019 Does person have serious dif ficulty walking/climbing stairs? Yes 11/07/2019 Does person have difficulty dressing/bathing? No 11/07/2019 Does person have difficulty doing errands alone? No 11/07/2019 Cognitive Status Response Date of Assessm ent Does person have difficulty concentrating/remembering/making decisions? No 11/07/2019 Plan of Treatment Not on file Medical Devices Implanted Type Area Bi Manager Device Identifier Shelf Expiration Date Model / Serial / Lot [place] Sut Truespan Othcrd Peek Nabsb 2 Implanted:Qty: 3 on 11/07/2019 by Charanjit Beckwith MD at [facility] [employer] 03/16/2022 [id number] / / [id number] Care Teams Supply Teacher Relationship Specialty Start Date End Date Gemma Yap MD [address] [place] [address] [address] [place] [address] PCP - General Pediatrics 10/11/19 Gemma Yap MD [address] [place] [address] [address] [place] [address] 10/11/19 Charanjit Beckwith MD [address] [place] [address] [address] [place] [address] Orthopedic Surgery Orthopedic Surgery 10/11/19
--- OUTSIDE RECORDS SUMMARY | 2024-05-27 16:31 | XMS_ITS | Encounter Summary ---
Author Organization [facility] Address [address] [place] [address] Care Team Providers Care Pals Specialist Name Role Phone Gemma Yap MD Primary Care Provider + Encounter Details Date Type Department Care Team (Late st Contact Info) Description 04/18/2007 Outpatient Historical [facility]s - [facility] [address] [address] [facility] [address] [place] [address] Franchesca Stover CPNP [address] [facility] [address] [place] [address] Social History Tobacco Use Types Packs/Day Years Used Date Smoking Tobacco: Never Assessed Sex and Gender Information Value Date Recorded Sex Assigned at Not on file Legal Sex Male 4:44 AM TV NEWS DIRECTOR Gender Identity Not on file Sexual Orientation Not on file documented as of this encounter Last Filed Vital Signs Vital Sign Reading Time Taken Comments Blood Pressure - - Pulse 112 04/18/2007 10:45 AM TV NEWS DIRECTOR Temperature 36.8 C (98.2 F) 04/18/2007 10:45 AM TV NEWS DIRECTOR Respiratory Rate 16 04/18/2007 10:45 AM TV NEWS DIRECTOR Oxygen Saturation - - Inhaled Oxygen Concentration - - Weight 19.3 kg (42 lb 8 oz) 04/18/2007 10:45 AM TV NEWS DIRECTOR Height - - Body Mass Index - - documented in this encounter Plan of Treatment Not on file documented as of this encounter Visit Diagnoses Not on filedocumented in this encounter Additional Health Concerns Infection Onset Date Last Indicated Resolved Time R/O COVID-19 03/09/2020 03/09/2020 03/11/2020 2:31 AM TV NEWS DIRECTOR documented as of this encounter Care Teams Pals Specialist Relationship Specialty [place] [address] [facility] [address] [place] [address] PCP - General Pediatrics 05/22/18 documented as of this encounter
--- OUTSIDE RECORDS SUMMARY | 2024-05-27 16:31 | XMS_ITS | Encounter Summary ---
Author Organization [facility] Address [address] [place] [address] Care Team Providers Care Rail Manager Name Role Phone Gemma Yap MD Primary Care Provider + Encounter Details Date Type Department Care Team (Late st Contact Info) Description 05/13/2004 Outpatient Historical [facility] Pediatrics - [facility] [address] [address] [facility] [address] [place] [address] Keegan Bartlett MD [address] [place] [address] Social History Tobacco Use Types Packs/Day Years Used Date Smoking Tobacco: Never Assessed Sex and Gender Information Value Date Recorded Sex Assigned at Not on file Legal Sex Male 4:44 AM PIPE TESTING TECHNICIAN Gender Identity Not on file Sexual Orientation Not on file documented as of this encounter Last Filed Vital Signs Vital Sign Reading Time Taken Comments Blood Pressure - - Pulse 100 05/13/2004 9:00 AM PIPE TESTING TECHNICIAN Temperature 36.4 C (97.5 F) 05/13/2004 9:00 AM PIPE TESTING TECHNICIAN Respiratory Rate 28 05/13/2004 9:00 AM PIPE TESTING TECHNICIAN Oxygen Saturation - - Inhaled Oxygen Concentration - - Weight 11.8 kg (26 lb) 05/13/2004 9:00 AM PIPE TESTING TECHNICIAN Height - - Body Mass Index - - documented in this encounter Plan of Treatment Not on file documented as of this encounter Visit Diagnoses Not on filedocumented in this encounter Additional Health Concerns Infection Onset Date Last Indicated Resolved Time R/O COVID-19 03/09/2020 03/09/2020 03/11/2020 2:31 AM PIPE TESTING TECHNICIAN documented as of this encounter Care Teams Rail Manager Relationship Specialty [place] [address] [facility] [address] [place] [address] PCP - General Pediatrics 05/22/18 documented as of this encounter
--- OUTSIDE RECORDS SUMMARY | 2024-05-27 16:31 | XMS_ITS | Encounter Summary ---
Author Organization [facility] Address [address] [place] [address] Care Team Providers Care Director Occupational Name Role Phone Gemma Yap MD Primary Care Provider + Encounter Details Date Type Department Care Team (Late st [facility]) Description 09/04/2003 Outpatient Historical [facility] Pediatrics - [facility] [address] [address] [facility] [address] [place] [address] Keegan Batrlett MD [address] [place] [address] Social History Tobacco Use Types Packs/Day Years Used Date Smoking Tobacco: Never Assessed Sex and Gender Information Value Date Recorded Sex Assigned at Not on file Legal Sex Male 4:44 AM RESPIRATORY THERAPY INSTRUCTOR Gender Identity Not on file Sexual Orientation Not on file documented as of this encounter Plan of Treatment Not on file documented as of this encounter Visit Diagnoses Not on filedocumented in this encounter Additional Health Concerns Infection Onset Date Last Indicated Resolved Time R/O COVID-19 03/09/2020 03/09/2020 03/11/2020 2:31 AM RESPIRATORY THERAPY INSTRUCTOR documented as of this encounter Care Teams Director Occupational Relationship Specialty [place] [address] [facility] [address] [place] [address] PCP - General Pediatrics 05/22/18 documented as of this encounter
--- OUTSIDE RECORDS SUMMARY | 2024-05-27 16:31 | XMS_ITS | Encounter Summary ---
Author Organization [facility] Address [address] [place] [address] Care Team Providers Care Tractor Operator Helper Name Role Phone Gemma Yap MD Primary Care Provider + Encounter Details Date Type Department Care Team (Late [facility]) Description 04/08/2003 Outpatient [facility] Pediatrics - [facility] [address] [address] [facility] [address] [place] [address] Keegan Bartlett MD [address] [place] [address] Social History Tobacco Use Types Packs/Day Years Used Date Smoking Tobacco: Never Assessed Sex and Gender Information Value Date Recorded Sex Assigned at Not on file Legal Sex Male 4:44 AM CARBON FURNACE OPERATOR Gender Identity Not on file Sexual Orientation Not on file documented as of this encounter Plan of Treatment Not on file documented as of this encounter Visit Diagnoses Not on filedocumented in this encounter Additional Health Concerns Infection Onset Date Last Indicated Resolved Time R/O COVID-19 03/09/2020 03/09/2020 03/11/2020 2:31 AM CARBON FURNACE OPERATOR documented as of this encounter Care Teams Tractor Operator Helper Relationship Specialty [place] [address] [facility] [address] [place] [address] PCP - General Pediatrics 05/22/18 documented as of this encounter
--- OUTSIDE RECORDS SUMMARY | 2024-05-27 16:31 | XMS_ITS | Encounter Summary ---
Author Organization [facility] Address [address] [place] [address] Care Team Providers Care Microwave Oven Assembler Name Role Phone Gemma Yap MD Primary Care Provider + Encounter Details Date Type Department Care Team (Late st [facility]) Description 05/19/2006 Orders Only [facility] Pediatrics - [facility] [address] [address] [facility] [address] [place] [address] [place] [address] [facility] [address] [place] [address] Social History Tobacco Use Types Packs/Day Years Used Date Smoking Tobacco: Never Assessed Sex and Gender Information Value Date Recorded Sex Assigned at Not on file Legal Sex Male 4:44 AM PACKER OPERATOR AUTOMATIC Gender Identity Not on file Sexual Orientation Not on file documented as of this encounter Progress Notes * Gemma Diaz MD - 09/07/2007 4:44 PM CDT TIME:08:57 am PATIENT`S HOME PHONE: PATIENT`S WORK PHONE: PATIENT`S INSURANCE: [facility] [employer] WHO TOOK THE CALL: Usha Ko S PATIENT'S AGE: 5 yrs, 5 mths, 0 wks, 4 days GENERAL INFORMATION PATIENT STATUS: Established Patient. LAST VISIT: 02/13/06 WEIGHT: Reported weight from parent is 35 lbs. PCP: . WHO CALLED: Patient`s mother called. Patient reports no known allergies. PHARMACY NUMBER: CURRENT MEDICATIONS: Patient is currently taking no medications at the current time. PROBLEMS: EYE INFECTION: The infection is in the right eye, the infection is in the left eye. Patient's sibling was here on Monday, diagnosed with conjunctivitis, now patient has yellow drainage coming from both eyes, blood shot, itchy, matted shut this am, no other symptom's, can you rx? Sibling was rx's Vigamox. SECTION 1: DOCTOR`S RESPONSE: maximus 05/19/06 at 09:25 am MEDICATIONS: Call in to Pharmacy VIGAMOX OPHTHALMIC SOLUTION 0.5 % BOTTLES, 1 drop to affected eye tid x 1 week, 1 Dispensed, status: NEW PRESCRIPTION, 05/19/2006. FINAL ACTION: deonte 05/19/06 at 09:35 am Spoke with patient 05/19/06 at 09:35 am. cd/ma Called pharmacy at 05/19/06 at 09:35 am. cd/ma Electronically Signed by: Usha Ko on Friday, May 19, 2006 Addendum - 05/20/2006 07:42 am called out meds to diff. pharmacy Electronically Signed by: Norah Naranjo on Saturday, May 20, 2006 documented in this encounter Plan of Treatment Not on file documented as of this encounter Visit Diagnoses Not on filedocumented in this encounter Additional Health Concerns Infection Onset Date Last Indicated Resolved Time R/O COVID-19 03/09/2020 03/09/2020 03/11/2020 2:31 AM PACKER OPERATOR AUTOMATIC documented as of this encounter Care Teams Microwave Oven Assembler Relationship Specialty [place] [address] [facility] [address] [place] [address] PCP - General Pediatrics 05/22/18 documented as of this encounter
--- OUTSIDE RECORDS SUMMARY | 2024-05-27 16:31 | XMS_ITS | Encounter Summary ---
Author Organization [facility] Address [address] [place] [address] Care Team Providers Care Taxation Economist Name Role Phone Gemma Yap MD Primary Care Provider + Encounter Details Date Type Department Care Team (Late [facility]) Description 04/14/2004 Outpatient [facility] Pediatrics - [facility] [address] [address] [facility] [address] [place] [address] Keegan Bartlett MD [address] [place] [address] Social History Tobacco Use Types Packs/Day Years Used Date Smoking Tobacco: Never Assessed Sex and Gender Information Value Date Recorded Sex Assigned at Not on file Legal Sex Male 4:44 AM NUT SORTER OPERATOR Gender Identity Not on file Sexual Orientation Not on file documented as of this encounter Plan of Treatment Not on file documented as of this encounter Visit Diagnoses Not on filedocumented in this encounter Additional Health Concerns Infection Onset Date Last Indicated Resolved Time R/O COVID-19 03/09/2020 03/09/2020 03/11/2020 2:31 AM NUT SORTER OPERATOR documented as of this encounter Care Teams Taxation Economist Relationship Specialty [place] [address] [facility] [address] [place] [address] PCP - General Pediatrics 05/22/18 documented as of this encounter
--- OUTSIDE RECORDS SUMMARY | 2024-05-27 16:31 | XMS_ITS | Encounter Summary ---
Author Organization [facility] Address [address] [place] [address] Care Team Providers Care Axle And Frame Mechanic Name Role Phone Gemma Yap MD Primary Care Provider + Encounter Details Date Type Department Care Team (Late st [facility]) Description 06/09/2003 Outpatient [facility] - [facility] [address] [id number] [facility] [address] [place] [address] Keegan Bartlett MD [address] [place] [address] Social History Tobacco Use Types Packs/Day Years Used Date Smoking Tobacco: Never Assessed Sex and Gender Information Value Date Recorded Sex Assigned at Not on file Legal Sex Male 4:44 AM CHURN DRILLER HELPER Gender Identity Not on file Sexual Orientation Not on file documented as of this encounter Plan of Treatment Not on file documented as of this encounter Visit Diagnoses Not on filedocumented in this encounter Additional Health Concerns Infection Onset Date Last Indicated Resolved Time R/O COVID-19 03/09/2020 03/09/2020 03/11/2020 2:31 AM CHURN DRILLER HELPER documented as of this encounter Care Teams Axle And Frame Mechanic Relationship Specialty [place] [address] [facility] [address] [place] [address] PCP - General Pediatrics 05/22/18 documented as of this encounter
--- OUTSIDE RECORDS SUMMARY | 2024-05-27 16:31 | XMS_ITS | Encounter Summary ---
Author Organization [facility] Address [address] [place] [address] Care Team Providers Care Mixer Crane Operator Name Role Phone Gemma Yap MD Primary Care Provider + Encounter Details Date Type Department Care Team (Late st [facility]) Description 01/14/2003 Outpatient Historical [facility] Pediatrics - [facility] [address] [address] [facility] [address] [place] [address] Keegan Bartlett MD [address] [place] [address] Social History Tobacco Use Types Packs/Day Years Used Date Smoking Tobacco: Never Assessed Sex and Gender Information Value Date Recorded Sex Assigned at Not on file Legal Sex Male 4:44 AM METALLURGICAL ENGINEERING TECHNICIAN Gender Identity Not on file Sexual Orientation Not on file documented as of this encounter Plan of Treatment Not on file documented as of this encounter Visit Diagnoses Not on filedocumented in this encounter Additional Health Concerns Infection Onset Date Last Indicated Resolved Time R/O COVID-19 03/09/2020 03/09/2020 03/11/2020 2:31 AM METALLURGICAL ENGINEERING TECHNICIAN documented as of this encounter Care Teams Mixer Crane Operator Relationship Specialty [place] [address] [facility] [address] [place] [address] PCP - General Pediatrics 05/22/18 documented as of this encounter
--- OUTSIDE RECORDS SUMMARY | 2024-05-27 16:31 | XMS_ITS | Encounter Summary ---
Author Organization [facility] Address [address] [place] [address] Care Team Providers Care Weatherization Administrator Name Role Phone Gemma Yap MD Primary Care Provider + Encounter Details Date Type Department Care Team (Late st Contact Info) Description 08/21/2003 Outpatient Historical [facility] - [facility] [address] [address] [facility] [address] [place] [address] Keegan Bartlett MD [address] [place] [address] Social History Tobacco Use Types Packs/Day Years Used Date Smoking Tobacco: Never Assessed Sex and Gender Information Value Date Recorded Sex Assigned at Not on file Legal Sex Male 4:44 AM NUTRITION SPECIALIST Gender Identity Not on file Sexual Orientation Not on file documented as of this encounter Last Filed Vital Signs Vital Sign Reading Time Taken Comments Blood Pressure - - Pulse 138 08/21/2003 10:15 AM CDT Temperature 37.3 C (99.1 F) 08/21/2003 10:15 AM CDT Respiratory Rate 44 08/21/2003 10:15 AM CDT Oxygen Saturation - - Inhaled Oxygen Concentration - - Weight 9.412 kg (20 lb 12 oz) 08/21/2003 10:15 A M CDT Height - - Body Mass Index - - documented in this encounter Plan of Treatment Not on file documented as of this encounter Visit Diagnoses Not on filedocumented in this encounter Additional Health Concerns Infection Onset Date Last Indicated Resolved Time R/O COVID-19 03/09/2020 03/09/2020 03/11/2020 2:31 AM NUTRITION SPECIALIST documented as of this encounter Care Teams Weatherization Administrator Relationship Specialty [place] [address] [facility] [address] [place] [address] PCP - General Pediatrics 05/22/18 documented as of this encounter
--- OUTSIDE RECORDS SUMMARY | 2024-05-27 16:31 | XMS_ITS | Encounter Summary ---
Author Organization [facility] Address [address] [place] [address] Care Team Providers Care Test Man Name Role Phone Gemma Yap MD Primary Care Provider + Encounter Details Date Type Department Care Team (Late [facility]) Description 04/08/2003 Outpatient [facility] Pediatrics - [facility] [address] [address] [facility] [address] [place] [address] Keegan Bartlett MD [address] [place] [address] Social History Tobacco Use Types Packs/Day Years Used Date Smoking Tobacco: Never Assessed Sex and Gender Information Value Date Recorded Sex Assigned at Not on file Legal Sex Male 4:44 AM ELECTRICAL DRAFTER Gender Identity Not on file Sexual Orientation Not on file documented as of this encounter Plan of Treatment Not on file documented as of this encounter Visit Diagnoses Not on filedocumented in this encounter Additional Health Concerns Infection Onset Date Last Indicated Resolved Time R/O COVID-19 03/09/2020 03/09/2020 03/11/2020 2:31 AM ELECTRICAL DRAFTER documented as of this encounter Care Teams Test Man Relationship Specialty [place] [address] [facility] [address] [place] [address] PCP - General Pediatrics 05/22/18 documented as of this encounter
--- OUTSIDE RECORDS SUMMARY | 2024-05-27 16:31 | XMS_ITS | Encounter Summary ---
Author Organization [facility] Address [address] [place] [address] Care Team Providers Care Airport Tower Controller Name Role Phone Gemma Yap MD Primary Care Provider + Encounter Details Date Type Department Care Team (Late [facility]) Description 03/16/2004 Outpatient [facility] Pediatrics - [facility] [address] [address] [facility] [address] [place] [address] Keegan Bartlett MD [address] [place] [address] Social History Tobacco Use Types Packs/Day Years Used Date Smoking Tobacco: Never Assessed Sex and Gender Information Value Date Recorded Sex Assigned at Not on file Legal Sex Male 4:44 AM MEALS ON WHEELS DRIVER Gender Identity Not on file Sexual Orientation Not on file documented as of this encounter Plan of Treatment Not on file documented as of this encounter Visit Diagnoses Not on filedocumented in this encounter Additional Health Concerns Infection Onset Date Last Indicated Resolved Time R/O COVID-19 03/09/2020 03/09/2020 03/11/2020 2:31 AM MEALS ON WHEELS DRIVER documented as of this encounter Care Teams Airport Tower Controller Relationship Specialty [place] [address] [facility] [address] [place] [address] PCP - General Pediatrics 05/22/18 documented as of this encounter
--- OUTSIDE RECORDS SUMMARY | 2024-05-27 16:31 | XMS_ITS | Encounter Summary ---
Author Organization [facility] Address [address] [place] [address] Care Team Providers Care Java Developer Analyst Name Role Phone Gemma Yap MD Primary Care Provider + Encounter Details Date Type Department Care Team (Late st [facility] Info) Description 02/11/[address] [facility] Pediatrics - [facility] [address] [address] [facility] [address] [place] [address] Keegan Bartlett MD [address] [place] [address] Social History Tobacco Use Types Packs/Day Years Used Date Smoking Tobacco: Never Assessed Sex and Gender Information Value Date Recorded Sex Assigned at Not on file Legal Sex Male 4:44 AM ZIPPER IRONER Gender Identity Not on file Sexual Orientation Not on file documented as of this encounter Plan of Treatment Not on file documented as of this encounter Visit Diagnoses Not on filedocumented in this encounter Additional Health Concerns Infection Onset Date Last Indicated Resolved Time R/O COVID-19 03/09/2020 03/09/2020 03/11/2020 2:31 AM ZIPPER IRONER documented as of this encounter Care Teams Java Developer Analyst Relationship Specialty [place] [address] [facility] [address] [place] [address] PCP - General Pediatrics 05/22/18 documented as of this encounter
--- OUTSIDE RECORDS SUMMARY | 2024-05-27 16:31 | XMS_ITS | Encounter Summary ---
Author Organization [facility] Address [address] [place] [address] Care Team Providers Care University Relations Vice President Name Role Phone Gemma Yap MD Primary Care Provider + Encounter Details Date Type Department Care Team (Late [facility]) Description 2002 Outpatient Historical [facility] Pediatrics - [facility] [address] [address] [facility] [address] [place] [address] [place] [address] [facility] [address] [place] [address] Social History Tobacco Use Types Packs/Day Years Used Date Smoking Tobacco: Never Assessed Sex and Gender Information Value Date Recorded Sex Assigned at Not on file Legal Sex Male 4:44 AM QUALITY AUDITOR Gender Identity Not on file Sexual Orientation Not on file documented as of this encounter Plan of Treatment Not on file documented as of this encounter Visit Diagnoses Not on filedocumented in this encounter Additional Health Concerns Infection Onset Date Last Indicated Resolved Time R/O COVID-19 03/09/2020 03/09/2020 03/11/2020 2:31 AM QUALITY AUDITOR documented as of this encounter Care Teams University Relations Vice President Relationship Specialty [place] [address] [facility] [address] [place] [address] PCP - General Pediatrics 05/22/18 documented as of this encounter
--- OUTSIDE RECORDS SUMMARY | 2024-05-27 16:31 | XMS_ITS | Encounter Summary ---
Author Organization [facility] Address [address] [place] [address] Care Team Providers Care Park Interpreter Name Role Phone Gemma Yap MD Primary Care Provider + Encounter Details Date Type Department Care Team (Late st Contact Info) Description 02/13/2006 Outpatient [facility] Pediatrics - [facility] [address] [address] [facility] [address] [place] [address] Keegan Bartlett MD [address] [place] [address] Social History Tobacco Use Types Packs/Day Years Used Date Smoking Tobacco: Never Assessed Sex and Gender Information Value Date Recorded Sex Assigned at Not on file Legal Sex Male 4:44 AM SENIOR RECRUITER Gender Identity Not on file Sexual Orientation Not on file documented as of this encounter Last Filed Vital Signs Vital Sign Reading Time Taken Comments Blood Pressure - - Pulse 136 02/13/2006 11:00 AM SENIOR RECRUITER Temperature 36.7 C (98.1 F) 02/13/2006 11:00 AM SENIOR RECRUITER Respiratory Rate 28 02/13/2006 11:00 AM SENIOR RECRUITER Oxygen Saturation - - Inhaled Oxygen Concentration - - Weight 15.9 kg (35 lb) 02/13/2006 11:00 AM SENIOR RECRUITER Height - - Body Mass Index - - documented in this encounter Plan of Treatment Not on file documented as of this encounter Visit Diagnoses Not on filedocumented in this encounter Additional Health Concerns Infection Onset Date Last Indicated Resolved Time R/O COVID-19 03/09/2020 03/09/2020 03/11/2020 2:31 AM SENIOR RECRUITER documented as of this encounter Care Teams Park Interpreter Relationship Specialty [place] [address] [facility] [address] [place] [address] PCP - General Pediatrics 05/22/18 documented as of this encounter
--- OUTSIDE RECORDS SUMMARY | 2024-05-27 16:31 | XMS_ITS | Encounter Summary ---
Author Organization [facility] Address [address] [place] [address] Care Team Providers Care Acid Dumper Name Role Phone Gemma Yap MD Primary Care Provider + Encounter Details Date Type Department Care Team (Late st Contact Info) Description 12/29/2003 Outpatient Historical [facility] Pediatrics - [facility] [address] [address] [facility] [address] [place] [address] Gildardo Cano MD NO ADDRESS ON FILE Social History Tobacco Use Types Packs/Day Years Used Date Smoking Tobacco: Never Assessed Sex and Gender Information Value Date Recorded Sex Assigned at Not on file Legal Sex Male 4:44 AM REGULATORY LEADER Gender Identity Not on file Sexual Orientation Not on file documented as of this encounter Plan of Treatment Not on file documented as of this encounter Visit Diagnoses Not on filedocumented in this encounter Additional Health Concerns Infection Onset Date Last Indicated Resolved Time R/O COVID-19 03/09/2020 03/09/2020 03/11/2020 2:31 AM REGULATORY LEADER documented as of this encounter Care Teams Acid Dumper Relationship Specialty [place] [address] [facility] [address] [place] [address] PCP - General Pediatrics 05/22/18 documented as of this encounter
--- OUTSIDE RECORDS SUMMARY | 2024-05-27 16:31 | XMS_ITS | Referral Summary ---
Author Organization [facility] Address [address] [place] [address] Care Team Providers Care Hvac Lead Name Role Phone Gemma Diaz MD Primary Care Provider Allergies No known active allergies Medications adapalene-benzo yl peroxide 0.3-2.5 % gel with pump 2 Active sulfamethoxazol e-trimethoprim (BACTRIM DS) 800-160 mg per tablet Take 1 tablet (160 mg of trimethoprim total) by mouth 2 (two) times a day 28 tablet 2 Active Active Problems Problem Noted Date Diagnosed Date Peripheral tear of medial me niscus of right knee as current injury 12/31/2021 Closed fracture of lower end of right radius with routine healing 01/26/2017 Closed fracture of radius 12/20/2016 Allergic rhinitis due to other allergen 12/29/19 07 Social History Tobacco Use Types Packs/Day Years Used Date Smoking Tobacco: Never Smokeless Tobacco: Never Tobacco Cessation:Counseling Given: Not Answered Personal Safety Answer Date Recorded Getting School Help Needed Not on file 06/17 Sex and Gender Information Value Date Recorded Sex Assigned at Not on file Legal Sex Male 12:24 PM CDT Gender Identity Not on file Sexual Orientation Not on file Last Filed Vital Signs Vital Sign Reading Time Taken Comments Blood Pressure - - Pulse - - Temperature - - Respiratory Rate - - Oxygen Saturation - - Inhaled Oxygen Concentration - - Weight 81.6 kg (180 lb) 12/31/2021 1:45 PM CDT Height 182.9 cm (6') 12/31/2021 1:45 PM CDT Body Mass Index 24.41 12/31/2021 1:45 PM CDT Plan of Treatment Not on file Insurance [employer] OOS [employer] Care Teams Hvac Lead Relationship Specialty [place] [address] [address] [place] [address] PCP - General Pediatrics 12/23/21
--- OUTSIDE RECORDS SUMMARY | 2024-05-27 16:31 | XMS_ITS | Encounter Summary ---
Author Organization [facility] Address [address] [place] [address] Care Team Providers Care Raw Cheese Worker Name Role Phone Gemma Yap MD Primary Care Provider + Encounter Details Date Type Department Care Team (Late st Contact Info) Description 12/11/2003 Outpatient [facility] Pediatrics - [facility] [address] [address] [facility] [address] [place] [address] Keegan Bartlett MD [address] [place] [address] Social History Tobacco Use Types Packs/Day Years Used Date Smoking Tobacco: Never Assessed Sex and Gender Information Value Date Recorded Sex Assigned at Not on file Legal Sex Male 4:44 AM HEEL CURVER Gender Identity Not on file Sexual Orientation Not on file documented as of this encounter Last Filed Vital Signs Vital Sign Reading Time Taken Comments Blood Pressure - - Pulse - - Temperature - - Respiratory Rate - - Oxygen Saturation - - Inhaled Oxygen Concentration - - Weight - - Height - - Head Circumference 47.6 cm 12/11/2003 9:03 AM CDT Head Circumference Percentile 88.73% 12/11/2003 9:03 AM CDT Growth Chart: WHO (Boys, 0-2 years) Body Mass Index - - documented in this encounter Plan of Treatment Not on file documented as of this encounter Visit Diagnoses Not on filedocumented in this encounter Additional Health Concerns Infection Onset Date Last Indicated Resolved Time R/O COVID-19 03/09/2020 03/09/2020 03/11/2020 2:31 AM HEEL CURVER documented as of this encounter Care Teams Raw Cheese Worker Relationship Specialty [place] [address] [facility] [address] [place] [address] PCP - General Pediatrics 05/22/18 documented as of this encounter
--- OUTSIDE RECORDS SUMMARY | 2024-05-27 16:31 | XMS_ITS | Encounter Summary ---
Author Organization [facility] Address [address] [place] [address] Care Team Providers Care Senior Electronics Design Engineer Name Role Phone Gemma Yap MD Primary Care Provider + Encounter Details Date Type Department Care Team (Late [facility]) Description 04/05/2003 Outpatient [facility] Pediatrics - [facility] [address] [address] [facility] [address] [place] [address] Keegan Bartlett MD [address] [place] [address] Social History Tobacco Use Types Packs/Day Years Used Date Smoking Tobacco: Never Assessed Sex and Gender Information Value Date Recorded Sex Assigned at Not on file Legal Sex Male 4:44 AM GRADES 1 THRU 5 TEACHER Gender Identity Not on file Sexual Orientation Not on file documented as of this encounter Plan of Treatment Not on file documented as of this encounter Visit Diagnoses Not on filedocumented in this encounter Additional Health Concerns Infection Onset Date Last Indicated Resolved Time R/O COVID-19 03/09/2020 03/09/2020 03/11/2020 2:31 AM GRADES 1 THRU 5 TEACHER documented as of this encounter Care Teams Senior Electronics Design Engineer Relationship Specialty Start [place] [address] [facility] [address] [place] [address] PCP - General Pediatrics 05/22/18 documented as of this encounter
--- OUTSIDE RECORDS SUMMARY | 2024-05-27 16:31 | XMS_ITS | Encounter Summary ---
Author Organization [facility] Address [address] [place] [address] Care Team Providers Care Utilities Service Investigator Name Role Phone Gemma Yap MD Primary Care Provider + Encounter Details Date Type Department Care Team (Late st Contact Info) Description 04/16/2004 Outpatient Historical [facility] Pediatrics - [facility] [address] [address] [facility] [address] [place] [address] [place] [address] [facility] [address] [place] [address] Social History Tobacco Use Types Packs/Day Years Used Date Smoking Tobacco: Never Assessed Sex and Gender Information Value Date Recorded Sex Assigned at Not on file Legal Sex Male 4:44 AM GAMEWELL OPERATOR Gender Identity Not on file Sexual Orientation Not on file documented as of this encounter Last Filed Vital Signs Vital Sign Reading Time Taken Comments Blood Pressure - - Pulse 136 04/16/2004 10:00 AM GAMEWE[place] OPERATOR Temperature 36.7 C (98.1 F) 04/16/2004 10:00 AM GAMEWE[place] OPERATOR Respiratory Rate 36 04/16/2004 10:00 AM GAMEWELL OPERATOR Oxygen Saturation - - Inhaled Oxygen Concentration - - Weight 10.9 kg (24 lb) 04/16/2004 10:00 AM GAMEWELL OPERATOR Height - - Body Mass Index - - documented in this encounter Plan of Treatment Not on file documented as of this encounter Visit Diagnoses Not on filedocumented in this encounter Additional Health Concerns Infection Onset Date Last Indicated Resolved Time R/O COVID-19 03/09/2020 03/09/2020 03/11/2020 2:31 AM GAMEWELL OPERATOR documented as of this encounter Care Teams Utilities Service Investigator Relationship Specialty [place] [address] [facility] [address] [place] [address] PCP - General Pediatrics 05/22/18 documented as of this encounter
--- OUTSIDE RECORDS SUMMARY | 2024-05-27 16:31 | XMS_ITS | Encounter Summary ---
Author Organization [facility] Address [address] [place] [address] Care Team Providers Care Food Critic Name Role Phone Gemma Yap MD Primary Care Provider + Encounter Details Date Type Department Care Team (Late [facility]) Description 04/14/2004 Outpatient [facility] Pediatrics - [place] [address] [address] [facility] [address] [place] [address] Keegan Bartlett MD [address] [place] [address] Social History Tobacco Use Types Packs/Day Years Used Date Smoking Tobacco: Never Assessed Sex and Gender Information Value Date Recorded Sex Assigned at Not on file Legal Sex Male 4:44 AM COUNT TEAM MEMBER Gender Identity Not on file Sexual Orientation Not on file documented as of this encounter Plan of Treatment Not on file documented as of this encounter Visit Diagnoses Not on filedocumented in this encounter Additional Health Concerns Infection Onset Date Last Indicated Resolved Time R/O COVID-19 03/09/2020 03/09/2020 03/11/2020 2:31 AM COUNT TEAM MEMBER documented as of this encounter Care Teams Food Critic Relationship Specialty [place] [address] [facility] [address] [place] [address] PCP - General Pediatrics 05/22/18 documented as of this encounter
--- OUTSIDE RECORDS SUMMARY | 2024-05-27 16:31 | XMS_ITS | Encounter Summary ---
Author Organization [facility] Address [address] [place] [address] Care Team Providers Care Pin Ticket Machine Operator Name Role Phone Gemma Yap MD Primary Care Provider + Encounter Details Date Type Department Care Team (Late [facility]) Description 03/16/2004 Outpatient [facility] Pediatrics - [facility] [address] [address] [facility] [address] [place] [address] Keegan Bartlett MD [address] [place] [address] Social History Tobacco Use Types Packs/Day Years Used Date Smoking Tobacco: Never Assessed Sex and Gender Information Value Date Recorded Sex Assigned at Not on file Legal Sex Male 4:44 AM NECK BAND SETTER Gender Identity Not on file Sexual Orientation Not on file documented as of this encounter Plan of Treatment Not on file documented as of this encounter Visit Diagnoses Not on filedocumented in this encounter Additional Health Concerns Infection Onset Date Last Indicated Resolved Time R/O COVID-19 03/09/2020 03/09/2020 03/11/2020 2:31 AM NECK BAND SETTER documented as of this encounter Care Teams Pin Ticket Machine Operator Relationship Specialty [place] [address] [facility] [address] [place] [address] PCP - General Pediatrics 05/22/18 documented as of this encounter
--- OUTSIDE RECORDS SUMMARY | 2024-05-27 16:31 | XMS_ITS | Encounter Summary ---
Author Organization [facility] Address [address] [place] [address] Care Team Providers Care Intake Clinician Name Role Phone Gemma Yap MD Primary Care Provider + Encounter Details Date Type Department Care Team (Late st [facility] Info) Description 02/11/2003 Outpatient Historical [facility] Pediatrics - [facility] [address] [address] [facility] [address] [place] [address] Keegan Bartlett MD [address] [place] [address] Social History Tobacco Use Types Packs/Day Years Used Date Smoking Tobacco: Never Assessed Sex and Gender Information Value Date Recorded Sex Assigned at Not on file Legal Sex Male 4:44 AM BUILDING RENTAL SUPERINTENDENT Gender Identity Not on file Sexual Orientation Not on file documented as of this encounter Plan of Treatment Not on file documented as of this encounter Visit Diagnoses Not on filedocumented in this encounter Additional Health Concerns Infection Onset Date Last Indicated Resolved Time R/O COVID-19 03/09/2020 03/09/2020 03/11/2020 2:31 AM BUILDING RENTAL SUPERINTENDENT documented as of this encounter Care Teams Intake Clinician Relationship Specialty [place] [id number] [facility] [address] [place] [address] PCP - General Pediatrics 05/22/18 documented as of this encounter
--- OUTSIDE RECORDS SUMMARY | 2024-05-27 16:31 | XMS_ITS | Clinical Summary ---
Author Organization [facility] Address [address] [place] [address] Care Team Providers Care Foreign Food Specialty Cook Name Role Phone Gemma Diaz MD Primary [...] rhinitis due to other allergen 12/29/19 07 Surgical History Surgery Date Site/Laterality Comments KNEE SURGERY 04/17/2018 - 04/16/2019 Right meniscus repair, Dr. Charanjit Beckwith Family History Medical History Relation Name Comments No Known Problems Father No Known Problems Mother Relation Name Status Comments Father Mother Social History Tobacco Use Types Packs/Day Years Used Date Smoking Tobacco: Never Smokeless Tobacco: Never Tobacco Cessation:Counseling Given: Not Answered Personal Safety Answer Date Recorded Getting School Help Needed Not on file 06/17 Sex and Gender Information Value Date Recorded Sex Assigned at Not on file Legal Sex Male 12:24 PM CDT Gender Identity Not on file Sexual Orientation Not on file Obstetrics History Last Filed Vital Signs Vital Sign Reading Time Taken Comments Blood Pressure - - Pulse - - Temperature - - Respiratory Rate - - Oxygen Saturation - - Inhaled Oxygen Concentration - - Weight 81.6 kg (180 lb) 12/31/2021 1:45 PM CDT Height 182.9 cm (6') 12/31/2021 1:45 PM CDT Body Mass Index 24.41 12/31/2021 1:45 PM CDT Plan of Treatment Health Maintenance Due Date Last Done Comments Depression Screening 2002 Hepatitis C Screening 2002 HPV Vaccines (1 - Male 3-dos e series) 2017 Meningococcal B Vaccine (1 o f 2 - Patient Seeks Protection) 2018 Regular Well Visit/Exam 18-64 2020 Influenza Vaccine (#1) 2023 7, 01/25/2016, 02/21/2015, Additional history exists DTaP/Tdap/Td Vaccine (7 - Td or Tdap) 01/28/2024 01/27/2014, 12/18/2007, 03/16/2004, Additional history exists Pneumococcal vaccine <65 Completed 004, 06/09/2003, 04/08/2003, Additional history exists Varicella Vaccines Completed 12/18/2007, 12/11/2003 Meningococcal Vaccine Completed 12/11/2019, [address] [place] [address] [employer] O[employer] O[employer] Care Teams Foreign Food Specialty Cook Relationship Specialty [place] [address] [place] [address] PCP - General Pediatrics 12/23/21
--- OUTSIDE RECORDS SUMMARY | 2024-05-27 16:31 | XMS_ITS | Encounter Summary ---
Author Organization [facility] Address [address] [place] [address] Care Team Providers Care Horseshoer Name Role Phone Gemma Yap MD Primary Care Provider + Encounter Details Date Type Department Care Team (Late [facility]) Description 07/18/2003 Outpatient Historical [facility] Pediatrics - [facility] [address] [address] [facility] [address] [place] [address] [place] [address] [facility] [address] [place] [address] Social History Tobacco Use Types Packs/Day Years Used Date Smoking Tobacco: Never Assessed Sex and Gender Information Value Date Recorded Sex Assigned at Not on file Legal Sex Male 4:44 AM PSYCHOLOGIST Gender Identity Not on file Sexual Orientation Not on file documented as of this encounter Plan of Treatment Not on file documented as of this encounter Visit Diagnoses Not on filedocumented in this encounter Additional Health Concerns Infection Onset Date Last Indicated Resolved Time R/O COVID-19 03/09/2020 03/09/2020 03/11/2020 2:31 AM PSYCHOLOGIST documented as of this encounter Care Teams Horseshoer Relationship Specialty [place] [address] [facility] [address] [place] [address] PCP - General Pediatrics 05/22/18 documented as of this encounter
--- OUTSIDE RECORDS SUMMARY | 2024-05-27 16:32 | XMS_ITS | Encounter Summary ---
Author Organization [facility] Address [address] [place] [address] Care Team Providers Care Program Project Manager Name Role Phone Gemma Yap MD Primary Care Provider + Encounter Details Date Type Department Care Team (Late [facility]) Description 03/20/2007 Outpatient [facility] Pediatrics - [facility] [address] [address] [facility] [address] [place] [address] Keegan Bartlett MD [address] [place] [address] Social History Tobacco Use Types Packs/Day Years Used Date Smoking Tobacco: Never Assessed Sex and Gender Information Value Date Recorded Sex Assigned at Not on file Legal Sex Male 4:44 AM ACUTE CARE CERTIFIED NURSING ASSISTANT Gender Identity Not on file Sexual Orientation Not on file documented as of this encounter Plan of Treatment Not on file documented as of this encounter Visit Diagnoses Not on filedocumented in this encounter Additional Health Concerns Infection Onset Date Last Indicated Resolved Time R/O COVID-19 03/09/2020 03/09/2020 03/11/2020 2:31 AM ACUTE CARE CERTIFIED NURSING ASSISTANT documented as of this encounter Care Teams Program Project Manager Relationship Specialty [place] [address] [facility] [address] [place] [address] PCP - General Pediatrics 05/22/18 documented as of this encounter
--- OUTSIDE RECORDS SUMMARY | 2024-05-27 16:32 | XMS_ITS | Encounter Summary ---
Author Organization [facility] Address [address] [place] [address] Care Team Providers Care Digital Photo Printer Name Role Phone Gemma Yap MD Primary Care Provider + Encounter Details Date Type Department Care Team (Late st Contact Info) Description 02/10/2005 Outpatient Historical [facility] Pediatrics - [facility] [address] [address] [facility] [address] [place] [address] Keegan Bartlett MD [address] [place] [address] Social History Tobacco Use Types Packs/Day Years Used Date Smoking Tobacco: Never Assessed Sex and Gender Information Value Date Recorded Sex Assigned at Not on file Legal Sex Male 4:44 AM DIGITAL ADVISOR Gender Identity Not on file Sexual Orientation Not on file documented as of this encounter Plan of Treatment Not on file documented as of this encounter Visit Diagnoses Not on filedocumented in this encounter Additional Health Concerns Infection Onset Date Last Indicated Resolved Time R/O COVID-19 03/09/2020 03/09/2020 03/11/2020 2:31 AM DIGITAL ADVISOR documented as of this encounter Care Teams Digital Photo Printer Relationship Specialty [place] [address] [facility] [address] [place] [address] PCP - General Pediatrics 05/22/18 documented as of this encounter
--- OUTSIDE RECORDS SUMMARY | 2024-05-27 16:32 | XMS_ITS | Encounter Summary ---
Author Organization [facility] Address [address] [place] [address] Care Team Providers Care Pond Tender Name Role Phone Gemma Yap MD Primary Care Provider + Encounter Details Date Type Department Care Team (Late st [facility]) Description 12/28/2006 Outpatient Historical [facility] Pediatrics - [facility] [address] [address] [facility] [address] [place] [address] Keegan Bartlett MD [address] [place] [address] Social History Tobacco Use Types Packs/Day Years Used Date Smoking Tobacco: Never Assessed Sex and Gender Information Value Date Recorded Sex Assigned at Not on file Legal Sex Male 4:44 AM SUGAR CANE PLANTER Gender Identity Not on file Sexual Orientation Not on file documented as of this encounter Plan of Treatment Not on file documented as of this encounter Visit Diagnoses Not on filedocumented in this encounter Additional Health Concerns Infection Onset Date Last Indicated Resolved Time R/O COVID-19 03/09/2020 03/09/2020 03/11/2020 2:31 AM SUGAR CANE PLANTER documented as of this encounter Care Teams Pond Tender Relationship Specialty [place] [address] [facility] [address] [place] [address] PCP - General Pediatrics 05/22/18 documented as of this encounter
--- OUTSIDE RECORDS SUMMARY | 2024-05-27 16:32 | XMS_ITS | Encounter Summary ---
Author Organization [facility] Address [address] [place] [address] Care Team Providers Care Cottonseed Meat Presser Name Role Phone Gemma Yap MD Primary Care Provider + Encounter Details Date Type Department Care Team (Late st Contact Info) Description 08/11/2004 Outpatient Historical [facility] Pediatrics - [facility] [address] [address] [facility] [address] [place] [address] Keegan Bartlett MD [address] [place] [address] Social History Tobacco Use Types Packs/Day Years Used Date Smoking Tobacco: Never Assessed Sex and Gender Information Value Date Recorded Sex Assigned at Not on file Legal Sex Male 4:44 AM TURBINE ENGINEER Gender Identity Not on file Sexual Orientation Not on file documented as of this encounter Last Filed Vital Signs Vital Sign Reading Time Taken Comments Blood Pressure - - Pulse 100 08/11/2004 9:45 AM CDT Temperature 36.6 C (97.8 F) 08/11/2004 9:45 AM CDT Respiratory Rate 28 08/11/2004 9:45 AM CDT Oxygen Saturation - - Inhaled Oxygen Concentration - - Weight 11.5 kg (25 lb 6 oz) 08/11/2004 9:45 AM C DT Height - - Body Mass Index - - documented in this encounter Plan of Treatment Not on file documented as of this encounter Visit Diagnoses Not on filedocumented in this encounter Additional Health Concerns Infection Onset Date Last Indicated Resolved Time R/O COVID-19 03/09/2020 03/09/2020 03/11/2020 2:31 AM TURBINE ENGINEER documented as of this encounter Care Teams Cottonseed Meat Presser Relationship Specialty [place] [address] [facility] [address] [place] [address] PCP - General Pediatrics 05/22/18 documented as of this encounter
--- OUTSIDE RECORDS SUMMARY | 2024-05-27 16:32 | XMS_ITS | Clinical Summary ---
Author Organization [facility] Address [address] [place] [phone] Care Team Providers Care Software Applications Developer Name Role Phone Gemma Yap MD Primary Care Provider + Allergies No known active allergies Medications CETIRIZINE HCL (ZYRTEC ORAL) Take by mouth. Active IBUPROFEN IB ORAL Take by mouth. Active acetaminophen (TYLENOL) 500 mg tablet Take 500 mg by mouth every 6 hours as needed. 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 12/28/200512/17 Infectious colitis, enteriti s, and gastroenteritis 02/10/2005 12/18/2007 Abrasion or friction burn of other, multiple, and unspecified sites, without mention of infection 02/10/2005 12/18/2007 Impacted cerumen 08/11/2004 12/18/2007 Person with feared complaint in whom no diagnosis was made 08/11/2004 12/18/2007 Acute suppurative otitis med ia without spontaneous rupture of eardrum 04/16/2004 8 Teething syndrome 08/21/2003 12/18/2007 Immunizations Immunization Administration Dates Next Due (ACTHIB/HIBERIX)(2 MOS-5 YRS /6 WKS-4 YRS) HAEMOPHILUS INFLUENZAE TYPE B VACCINE (HIB), PRP-T CONJUGATE, 4 DOSE, 0.5 ML IM 03/16/2004,12/11/2003,06/09/2003,04/08,02/11/2003 (ADACEL/BOOSTRIX)(10 YR UP) TDAP VACCINE, 0.5ML, IM 01/27/2014 (GARDASIL 9)(9-45 YRS) HUMAN PAPILLOMAVIRUS VACCINE, TYPES 6, 11, 16, 18, 31, 33, 45, 52, 58, NONAVALENT (9VHPV), 2 OR 3 DOSE, IM 10/27/2015,02/21/2015,11/27/2014 (HAVRIX/VAQTA)(12 MO-18 YRS) HEPATITIS A VACCINE 0.5 ML PED/ADOL 2 DOSE, IM 02/13/2006,12/07/2004 (INFANRIX)(6 WKS-6 YRS) DIPT HERIA, TETANUS TOXOIDS, AND ACCELLULAR PERTUSSIS VACCINE (DTAP), 0.5 ML IM 12/18/2007,03/16/2004,06/09/2003,04/08,02/11/2003 (IPOL)(6 WKS AND UP) POLIOVI FAYE VACCINE, INACTIVATED (IPV), 3 DOSE, SUBCUT OR IM 12/18/2007,04/08/2003,02/11/2003 (M-M-R II/PRIORIX)(12 MO UP) MEASLES, MUMPS AND RUBELLA VIRUS VACCINE, 0.5 ML IM/SUBCUT 12/18/2007,03/16/2004 (MENACTRA)(9 MO-55 YR) MENIN GOCOCCAL POLYSACCHARIDE A, C, Y AND W-135 DIPTHERIA TOXOID CONJUGATE VACCINE, (PF), 0.5ML, IM 12/11/2019 (RECOMBIVAX HB/ENGERIX-B)(0- 19 YRS) HEPATITIS B VACCINE 5 MCG/0.5 ML OR 10 MCG/0.5 ML PED OR ADOL 3 DOSE (PF), IM 06/09/2003,01/14/2003,2002 (VARIVAX)(12 MOS UP)VARICELL A VIRUS VACCINE (PF) 0.5 ML, SUB CUT 12/18/2007,12/11/2003 INFLUENZA VACCINE QUADRIVALE NT 2-49 YRS NASAL 01/27/2014,02/12/2013 INFLUENZA VACCINE QUADRIVALE NT 3 YR UP PF IM 01/25/2016,02/21/2015 INFLUENZA VACCINE QUADRIVALE NT 6 MOS UP PF IM 01/26/2017 Influenza A (H1N1) Vaccine Nasal 03/01/2009 Influenza Vaccine Nasal 02/07/2012,02/10,02/23/2010,12/26,12/18/2007,04/18/2007 Influenza Vaccine Split 3+ Yrs IM 03/20/2007, Influenza Vaccine Split 6-35 Mo IM 02/10/2005,,03/16/2004 Meningococcal A Conjugate Vaccine IM 01/27/2014 Pneumococcal 7-valent conjug ate vaccine IM 12/11/2003,06/09/2003,04/08/2003,02/11 Family History Medical History Relation Name Comments Healthy Father Healthy Maternal Grandfather High Cholesterol Maternal Grandfather Cancer Maternal Grandmother Lymphom a Healthy Mother High Cholesterol Mother Healthy Paternal Grandfather High Cholesterol Paternal Grandfather Healthy Paternal Grandmother Heart Disease Paternal Grandmother Healthy Sister Relation Name Status Comments Father Alive Maternal Grandfather Alive Maternal Grandmother Mother Alive Paternal Grandfather Alive Paternal Grandmother Alive Sister Alive Social History Tobacco Use Types Packs/Day Years Used Date Smoking Tobacco: Never Smokeless Tobacco: Never Alcohol Use Standard Drinks/Week Comments No 0 (1 standard drink = 0.6 oz pur e alcohol) Adolescent Education Answer Date Record ed Getting School Help Needed Not on file 11/03 Sex and Gender Information Value Date Recorded Sex Assigned at Not on file Legal Sex Male 4:44 AM BIOLOGY DEPARTMENT CHAIR Gender Identity Not on file Sexual Orientation Not on file Last Filed Vital Signs Vital Sign Reading Time Taken Comments Blood Pressure 120/62 03/09/2020 2:22 PM BIOLOGY DEPARTMENT CHAIR Pulse 100 03/09/2020 2:22 PM BIOLOGY DEPARTMENT CHAIR Temperature 36.5 C (97.7 F) 03/09/2020 2:22 PM BIOLOGY DEPARTMENT CHAIR Respiratory Rate 12 03/09/2020 2:22 PM BIOLOGY DEPARTMENT CHAIR Oxygen Saturation - - Inhaled Oxygen Concentration - - Weight 72.6 kg (160 lb) 03/09/2020 2:22 PM BIOLOGY DEPARTMENT CHAIR Height 179.1 cm (5' 10.5 ) 12/11/2019 1:18 PM CD T Body Mass Index - - Plan of Treatment Health Maintenance Due Date Last Done Comments INFLUENZA VACCINE (#1) 2023 7, 01/25/2016, 02/21/2015, Additional history exists DTAP/TDAP/TD VACCINES (7 - Td or Tdap) 01/28/2024 01/27/2014, 12/18/2007, 03/16/2004, Additional history exists Preventative Visit- Commercial 04/17/2024 12/11/2019, 11/09/2018, 10/25/2017, Additional history exists HEPATITIS B VACCINES Completed 06/09/2003, 01/14/2003, 2002 PNEUMOCOCCAL VACCINE 0-64 YEARS Aged Out 12/11/2003, 06/09/2003, 04/08/2003, Additional history exists No longer eligible based on patient's age to complete this topic HPV VACCINES Completed 10/27/2015, 10/2014, 11/27/2014 Insurance [facility] BL[facility] ACCESS/TRUE BLUE PPO [facility]/TRUE BLUE PPO Care Teams Software Applications Developer Relationship Specialty [place] [address] [facility] [address] [place] [address] PCP - General Pediatrics 05/22/18
--- OUTSIDE RECORDS SUMMARY | 2024-05-27 16:32 | XMS_ITS | Encounter Summary ---
Author Organization [facility] Address [address] [place] [address] Care Team Providers Care Metal Hanging Helper Name Role Phone Gemma Yap MD Primary Care Provider + Encounter Details Date Type Department Care Team (Late st [facility]) Description 11/18/2004 Outpatient Historical [facility] Pediatrics - [facility] [address] [address] [facility] [address] [place] [address] Keegan Bartlett MD [address] [place] [address] Social History Tobacco Use Types Packs/Day Years Used Date Smoking Tobacco: Never Assessed Sex and Gender Information Value Date Recorded Sex Assigned at Not on file Legal Sex Male 4:44 AM INFORMATION TECHNOLOGY ARCHITECT Gender Identity Not on file Sexual Orientation Not on file documented as of this encounter Plan of Treatment Not on file documented as of this encounter Visit Diagnoses Not on filedocumented in this encounter Additional Health Concerns Infection Onset Date Last Indicated Resolved Time R/O COVID-19 03/09/2020 03/09/2020 03/11/2020 2:31 AM INFORMATION TECHNOLOGY ARCHITECT documented as of this encounter Care Teams Metal Hanging Helper Relationship Specialty [place] [address] [facility] [address] [place] [address] PCP - General Pediatrics 05/22/18 documented as of this encounter
--- OUTSIDE RECORDS SUMMARY | 2024-05-27 16:32 | XMS_ITS | Encounter Summary ---
Author Organization [facility] Address [address] [place] [address] Care Team Providers Care Field Inspector Name Role Phone Gemma Yap MD Primary Care Provider + Encounter Details Date Type Department Care Team (Late st Contact Info) Description 02/10/2005 Outpatient Historical [facility] Pediatrics - [facility] [address] [address] [facility] [address] [place] [address] Keegan Bartlett MD [address] [place] [address] Social History Tobacco Use Types Packs/Day Years Used Date Smoking Tobacco: Never Assessed Sex and Gender Information Value Date Recorded Sex Assigned at Not on file Legal Sex Male 4:44 AM MOTTLE LAY UP OPERATOR Gender Identity Not on file Sexual Orientation Not on file documented as of this encounter Plan of Treatment Not on file documented as of this encounter Visit Diagnoses Not on filedocumented in this encounter Additional Health Concerns Infection Onset Date Last Indicated Resolved Time R/O COVID-19 03/09/2020 03/09/2020 03/11/2020 2:31 AM MOTTLE LAY UP OPERATOR documented as of this encounter Care Teams Field Inspector Relationship Specialty [place] [address] [facility] [address] [place] [address] PCP - General Pediatrics 05/22/18 documented as of this encounter
--- OUTSIDE RECORDS SUMMARY | 2024-05-27 16:32 | XMS_ITS | Encounter Summary ---
Author Organization [facility] Address [address] [place] [address] Care Team Providers Care Stitch Wheeler Name Role Phone Gmema Yap MD Primary Care Provider + Encounter Details Date Type Department Care Team (Late st [facility]) Description 12/07/2004 Outpatient Historical [facility] Pediatrics - [facility] [address] [address] [facility] [address] [place] [address] Keegan Bartlett MD [address] [place] [address] Social History Tobacco Use Types Packs/Day Years Used Date Smoking Tobacco: Never Assessed Sex and Gender Information Value Date Recorded Sex Assigned at Not on file Legal Sex Male 4:44 AM ASSISTED LIVING MANAGER Gender Identity Not on file Sexual Orientation Not on file documented as of this encounter Plan of Treatment Not on file documented as of this encounter Visit Diagnoses Not on filedocumented in this encounter Additional Health Concerns Infection Onset Date Last Indicated Resolved Time R/O COVID-19 03/09/2020 03/09/2020 03/11/2020 2:31 AM ASSISTED LIVING MANAGER documented as of this encounter Care Teams Stitch Wheeler Relationship Specialty [place] [address] [facility] [address] [place] [address] PCP - General Pediatrics 05/22/18 documented as of this encounter
--- OUTSIDE RECORDS SUMMARY | 2024-05-27 16:32 | XMS_ITS | Encounter Summary ---
Author Organization [facility] Address [address] [place] [address] Care Team Providers Care Research Anthropologist Name Role Phone Gemma Yap MD Primary Care Provider + Encounter Details Date Type Department Care Team (Late st [facility]) Description 12/28/2006 Outpatient Historical [facility]s - [facility] [address] [address] [facility] [address] [place] [address] Keegan Bartlett MD [address] [place] [address] Social History Tobacco Use Types Packs/Day Years Used Date Smoking Tobacco: Never Assessed Sex and Gender Information Value Date Recorded Sex Assigned at Not on file Legal Sex Male 4:44 AM REAL ESTATE LEASING AGENT Gender Identity Not on file Sexual Orientation Not on file documented as of this encounter Plan of Treatment Not on file documented as of this encounter Visit Diagnoses Not on filedocumented in this encounter Additional Health Concerns Infection Onset Date Last Indicated Resolved Time R/O COVID-19 03/09/2020 03/09/2020 03/11/2020 2:31 AM REAL ESTATE LEASING AGENT documented as of this encounter Care Teams Research Anthropologist Relationship Specialty [place] [address] [facility] [address] [place] [address] PCP - General Pediatrics 05/22/18 documented as of this encounter
--- OUTSIDE RECORDS SUMMARY | 2024-05-27 16:32 | XMS_ITS | Encounter Summary ---
Author Organization [facility] Address [address] [place] [address] Care Team Providers Care Consulting Practice Manager Name Role Phone Gemma Yap MD Primary Care Provider + Encounter Details Date Type Department Care Team (Late [facility]) Description 03/09/2007 Outpatient Historical [facility] Pediatrics - [facility] [address] [address] [facility] [address] [place] [address] Keegan Bartlett MD [address] [place] [address] Social History Tobacco Use Types Packs/Day Years Used Date Smoking Tobacco: Never Assessed Sex and Gender Information Value Date Recorded Sex Assigned at Not on file Legal Sex Male 4:44 AM COMMUNITY COORDINATOR FOR HIGH SCHOOL Gender Identity Not on file Sexual Orientation Not on file documented as of this encounter Plan of Treatment Not on file documented as of this encounter Visit Diagnoses Not on filedocumented in this encounter Additional Health Concerns Infection Onset Date Last Indicated Resolved Time R/O COVID-19 03/09/2020 03/09/2020 03/11/2020 2:31 AM COMMUNITY COORDINATOR FOR HIGH SCHOOL documented as of this encounter Care Teams Consulting Practice Manager Relationship Specialty [place] [address] [facility] [address] [place] [address] PCP - General Pediatrics 05/22/18 documented as of this encounter
--- OUTSIDE RECORDS SUMMARY | 2024-05-27 16:32 | XMS_ITS | Encounter Summary ---
Author Organization [facility] Address [address] [place] [address] Care Team Providers Care Issuer Name Role Phone Gemma Yap MD Primary Care Provider + Encounter Details Date Type Department Care Team (Late st Contact Info) Description 12/28/2005 Outpatient [facility] Pediatrics - [facility] [address] [address] [facility] [address] [place] [address] Keegan Bartlett MD [address] [place] [address] Social History Tobacco Use Types Packs/Day Years Used Date Smoking Tobacco: Never Assessed Sex and Gender Information Value Date Recorded Sex Assigned at Not on file Legal Sex Male 4:44 AM PATTERNMAKER SAMPLE Gender Identity Not on file Sexual Orientation Not on file documented as of this encounter Last Filed Vital Signs Vital Sign Reading Time Taken Comments Blood Pressure 98/52 12/28/2005 11:00 AM CDT Pulse - - Temperature - - Respiratory Rate - - Oxygen Saturation - - Inhaled Oxygen Concentration - - Weight 15.4 kg (34 lb) 12/28/2005 11:00 AM CDT Height 96.5 cm (3' 2 ) 12/28/2005 11:00 AM CDT Yjiaaz-awj-Gcjuri Percentile 70.11% 12/28/2005 1 1:00 AM CDT Growth Chart: CDC (Boys, 2-2 0 Years) Body Mass Index 16.55 12/28/2005 11:00 AM CDT Body Mass Index Percentile 67.51% 12/28/2005 11: 00 AM CDT Growth Chart: CDC (Boys, 2-2 0 Years) documented in this encounter Plan of Treatment Not on file documented as of this encounter Visit Diagnoses Not on filedocumented in this encounter Additional Health Concerns Infection Onset Date Last Indicated Resolved Time R/O COVID-19 03/09/2020 03/09/2020 03/11/2020 2:31 AM PATTERNMAKER SAMPLE documented as of this encounter Care Teams Issuer Relationship Specialty [place] [id number] [facility] [address] [place] [address] PCP - General Pediatrics 05/22/18 documented as of this encounter
--- OUTSIDE RECORDS SUMMARY | 2024-05-27 16:32 | XMS_ITS | Encounter Summary ---
Author Organization [facility] Address [address] [place] [address] Care Team Providers Care Network Desktop Support Specialist Name Role Phone Gemma Yap MD Primary Care Provider + Encounter Details Date Type Department Care Team (Late [facility]) Description 03/09/2007 Outpatient Historical [facility] Pediatrics - [facility] [address] [address] [facility] [address] [place] [address] Keegan Bartlett MD [address] [place] [address] Social History Tobacco Use Types Packs/Day Years Used Date Smoking Tobacco: Never Assessed Sex and Gender Information Value Date Recorded Sex Assigned at Not on file Legal Sex Male 4:44 AM SPECIALTY MANUFACTURING SUPERVISOR Gender Identity Not on file Sexual Orientation Not on file documented as of this encounter Plan of Treatment Not on file documented as of this encounter Visit Diagnoses Not on filedocumented in this encounter Additional Health Concerns Infection Onset Date Last Indicated Resolved Time R/O COVID-19 03/09/2020 03/09/2020 03/11/2020 2:31 AM SPECIALTY MANUFACTURING SUPERVISOR documented as of this encounter Care Teams Network Desktop Support Specialist Relationship Specialty [place] [address] [facility] [address] [place] [address] PCP - General Pediatrics 05/22/18 documented as of this encounter
--- OUTSIDE RECORDS SUMMARY | 2024-05-27 16:32 | XMS_ITS | Encounter Summary ---
Author Organization [facility] Address [address] [place] [address] Care Team Providers Care Bobbin Hauler Name Role Phone Gemma Yap MD Primary Care Provider + Encounter Details Date Type Department Care Team (Late st Contact Info) Description 12/28/2006 Orders Only [facility] Pediatrics - [facility] [address] [address] [facility] [address] [place] [address] Keegan Bartlett MD [address] [place] [address] Social History Tobacco Use Types Packs/Day Years Used Date Smoking Tobacco: Never Assessed Sex and Gender Information Value Date Recorded Sex Assigned at Not on file 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 ALLERGIES: CURRENT ALLERGY LIST: NKDA MEDICATIONS: Triaminic CHIEF COMPLAINT: The child is here for 6 year check up. Please see scanned Well Visit form for samedate of service. HISTORY: ASSESSMENT/PLAN: V20.2-HEALTH SUPERVISION OF INFANT OR CHILD LAB ORDERS: Order number: [id number] Test Ordered: PURE TONE HEARING SCREEN [id number] Order number: [id number] Test Ordered: VISION SCREENING 18777 477.8-ALLERGIC RHINITIS MEDICATIONS: CLARITIN ORAL SYRUP 5 MG/5ML, 5-7.5 ml once a day, 300 Dispensed, status: NEW PRESCRIPTION, 12/28/2006. Electronically Signed by: Keegan Bartlett MD on December documented in this encounter Plan of Treatment Not on file documented as of this encounter Visit Diagnoses Not on filedocumented in this encounter Additional Health Concerns Infection Onset Date Last Indicated Resolved Time R/O COVID-19 03/09/2020 03/09/2020 03/11/2020 2:31 AM PROPELLER TESTER documented as of this encounter Care Teams Bobbin Hauler Relationship Specialty [place] [address] [facility] [address] [place] [address] PCP - General Pediatrics 05/22/18 documented as of this encounter
--- OUTSIDE RECORDS SUMMARY | 2024-05-27 16:32 | XMS_ITS | Encounter Summary ---
Author Organization [facility] Address [address] [place] [address] Care Team Providers Care Education Consultant Name Role Phone Gemma Yap MD Primary Care Provider + Encounter Details Date Type Department Care Team (Late st [place] [facility]) Description 12/07/2004 Outpatient Historical [facility] Pediatrics - [facility] [address] [address] [facility] [address] [place] [address] Keegan Bartlett MD [address] [place] [address] Social History Tobacco Use Types Packs/Day Years Used Date Smoking Tobacco: Never Assessed Sex and Gender Information Value Date Recorded Sex Assigned at Not on file 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 Gender Identity Not on file Sexual Orientation Not on file documented as of this encounter Plan of Treatment Not on file documented as of this encounter Visit Diagnoses Not on filedocumented in this encounter Additional Health Concerns Infection Onset Date Last Indicated Resolved Time R/O COVID-19 03/09/2020 03/09/2020 03/11/2020 2:31 AM CLUBHOUSE ATTENDANT documented as of this encounter Care Teams Education Consultant Relationship Specialty [place] [address] [facility] [address] [place] [address] PCP - General Pediatrics 05/22/18 documented as of this encounter
--- OUTSIDE RECORDS SUMMARY | 2024-05-27 16:32 | XMS_ITS | Encounter Summary ---
Author Organization [facility] Address [address] [place] [address] Care Team Providers Care Child Daycare Worker Name Role Phone Gemma Yap MD Primary Care Provider + Encounter Details Date Type Department Care Team (Late st Contact Info) Description 12/16/2004 Outpatient Historical [facility] Pediatrics - [facility] [address] [address] [facility] [address] [place] [address] Keegan Bartlett MD [address] [place] [address] Social History Tobacco Use Types Packs/Day Years Used Date Smoking Tobacco: Never Assessed Sex and Gender Information Value Date Recorded Sex Assigned at Not on file 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 Gender Identity Not on file Sexual Orientation Not on file documented as of this encounter Last Filed Vital Signs Vital Sign Reading Time Taken Comments Blood Pressure - - Pulse 108 12/16/2004 10:00 AM CDT Temperature 36.3 C (97.4 F) 12/16/2004 10:00 AM CDT Respiratory Rate 28 12/16/2004 10:00 AM CDT Oxygen Saturation - - Inhaled Oxygen Concentration - - Weight 12.7 kg (28 lb) 12/16/2004 10:00 AM CDT Height - - Body Mass Index - - documented in this encounter Plan of Treatment Not on file documented as of this encounter Visit Diagnoses Not on filedocumented in this encounter Additional Health Concerns Infection Onset Date Last Indicated Resolved Time R/O COVID-19 03/09/2020 03/09/2020 03/11/2020 2:31 AM MULTIPLE GAMES DEALER documented as of this encounter Care Teams Child Daycare Worker Relationship Specialty [place] [address] [facility] [address] [place] [address] PCP - General Pediatrics 05/22/18 documented as of this encounter
--- OUTSIDE RECORDS SUMMARY | 2024-05-27 16:32 | XMS_ITS | Encounter Summary ---
Author Organization [facility] Address [address] [place] [address] Care Team Providers Care Manager Mobile Name Role Phone Gemma Yap MD Primary Care Provider + Encounter Details Date Type Department Care Team (Late st Contact Info) Description 11/30/2005 Outpatient [facility] Pediatrics - [facility] [address] [address] [facility] [address] [place] [address] Keegan Bartlett MD [address] [place] [address] Social History Tobacco Use Types Packs/Day Years Used Date Smoking Tobacco: Never Assessed Sex and Gender Information Value Date Recorded Sex Assigned at Not on file 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 Gender Identity Not on file Sexual Orientation Not on file documented as of this encounter Last Filed Vital Signs Vital Sign Reading Time Taken Comments Blood Pressure - - Pulse 188 11/30/2005 11:15 AM CDT Temperature 38.1 C (100.6 F) 11/30/2005 11:15 AM CDT Respiratory Rate 40 11/30/2005 11:15 AM CDT Oxygen Saturation - - Inhaled Oxygen Concentration - - Weight 15 kg (33 lb) 11/30/2005 11:15 AM CDT Height - - Body Mass Index - - documented in this encounter Plan of Treatment Not on file documented as of this encounter Visit Diagnoses Not on filedocumented in this encounter Additional Health Concerns Infection Onset Date Last Indicated Resolved Time R/O COVID-19 03/09/2020 03/09/2020 03/11/2020 2:31 AM SLASHER MACHINE OPERATOR documented as of this encounter Care Teams Manager Mobile Relationship Specialty [place] [address] [facility] [address] [place] [address] PCP - General Pediatrics 05/22/18 documented as of this encounter
--- OUTSIDE RECORDS SUMMARY | 2024-05-27 16:32 | XMS_ITS | Encounter Summary ---
Author Organization [facility] Address [address] [place] [address] Care Team Providers Care Material Mixer Name Role Phone Gemma Yap MD Primary Care Provider + Encounter Details Date Type Department Care Team (Late st Contact Info) Description 03/20/[address] [facility] Pediatrics - [facility] [address] [address] [facility] [address] [place] [address] Social History Tobacco Use Types Packs/Day Years Used Date Smoking Tobacco: Never Assessed Sex and Gender Information Value Date Recorded Sex Assigned at Not on file Legal Sex Male 4:44 AM LEARNING OFFICER Gender Identity Not on file Sexual Orientation Not on file documented as of this encounter Plan of Treatment Not on file documented as of this encounter Visit Diagnoses Not on filedocumented in this encounter Additional Health Concerns Infection Onset Date Last Indicated Resolved Time R/O COVID-19 03/09/2020 03/09/2020 03/11/2020 2:31 AM LEARNING OFFICER documented as of this encounter Care Teams Material Mixer Relationship Specialty [place] [address] [place] [address] PCP - General Pediatrics 05/22/18 documented as of this encounter
--- OUTSIDE RECORDS SUMMARY | 2024-05-27 16:32 | XMS_ITS | Encounter Summary ---
Author Organization [facility] Address [address] [place] [address] Care Team Providers Care Biology Tutor Name Role Phone Gemma Yap MD Primary Care Provider + Encounter Details Date Type Department Care Team (Late st Contact Info) Description 03/09/2007 Orders Only [facility] [address] [facility] [address] [address] [place] [address] Franchesca Stover CPNP [address] [facility] [address] [place] [address] Social History Tobacco Use Types Packs/Day Years Used Date Smoking Tobacco: Never Assessed Sex and Gender Information Value Date Recorded Sex Assigned at Not on file Legal Sex Male 4:44 AM ELDERLY CAREGIVER Gender Identity Not on file Sexual Orientation Not on file documented as of this encounter Progress Notes * Franchesca Stover CPNP - 08/30/2007 7:22 PM CDT PATIENT'S AGE: 6 yrs, 2 mths, 3 wks, 4 days VITALS: TEMP: 98.5??f Axillary PULSE: 124 Apical, Regular RESPIRATIONS: 32. WEIGHT: 41lbs NURSE NAME: Lisa Joseph M ACCOMPANIED BY: Mother. ALLERGIES: CURRENT ALLERGY LIST: NKDA MEDICATIONS: RN/MA reviewed medications. ibuprofen 7:30am CHIEF COMPLAINT: The child is here for evaluation of fever, sore throat. HISTORY: HPI: SORE THROAT: The sore throat began approximately 1 day ago. The degree of the fever has been up to 101, the patient does not have nasal congestion, the patient does not have a cough, has no symptoms of rash, has no symptoms of headache. REVIEW OF SYSTEMS: GENERAL: Appears to have normal activity, no change in appetite, HAS A FEVER, normal fluid intake, sleeps well. RESPIRATORY: Does not appear to have shortness of breath. GI: No vomiting. SKIN/BREAST/CHEST: No rash. PHYSICAL EXAM: CONSTITUTIONAL: GENERAL APPEARANCE: Healthy appearing, alert patient, normally nourished, developmentally normal and in no acute distress. EYES: CONJUNCTIVA/LIDS: Conjunctivae and lids appear normal. PUPILS: Pupils equal and round. EARS, NOSE, MOUTH AND THROAT: EXTERNAL/EARS AND NOSE: Overall appearance normal without lesions or masses. EARS: Tympanic membranes shiny without retraction. Canals unremarkable. Hearing grossly normal. NOSE (AND SINUS): No abnormality of the nose or sinuses is noted. ORAL: MILD ERYTHEMATOUS OROPHARYNX, BOTH TONSILS ARE ERYTHEMATOUS, the tonsils are not enlarged, gums, lips, palate, and teeth are normal. NECK: No lymphadenopathy noted. Supple. RESPIRATORY: Clear to auscultation. Normal respiratory effort. CARDIOVASCULAR: CARDIAC: Regular rhythm with no murmurs, rubs, gallops, or abnormal heart sounds. GASTROINTESTINAL: ABDOMEN: Soft, non-tender, without masses. Bowel sound active. LIVER/SPLEEN/KIDNEY: No hepatosplenomegaly. SKIN: INSPECTION: Good color, no rashes, birthmarks or lesions noted on arms, chest or abdomen. OFFICE PROCEDURE: RAPID STREP: The rapid strep test done in the office was POSITIVE. ASSESSMENT/PLAN: 034.0-STREPTOCOCCAL SORE THROAT MEDICATIONS: AMOXICILLIN ORAL SUSPENSION WHEN RECONSTITUTED 400 MG/5ML MILLILITERS, 5 ml 2 times a day for 10 days., 100 Dispensed, status: NEW PRESCRIPTION, 03/09/2007. LAB ORDERS: Order number: [id number] Test Ordered: RAPID STREP [id number] RETURN VISIT/GUIDANCE: Instructed to:Take OTC meds as directed Call office if concerned or if child is no better Return if symptoms are not resolved. Electronically Signed by: CHERRIE Metz on Friday, March 09, 2007 Electronically Signed by: Keegan Bartlett MD on Saturday, March 10, 2007 documented in this encounter Plan of Treatment Not on file documented as of this encounter Visit Diagnoses Not on filedocumented in this encounter Additional Health Concerns Infection Onset Date Last Indicated Resolved Time R/O COVID-19 03/09/2020 03/09/2020 03/11/2020 2:31 AM ELDERLY CAREGIVER documented as of this encounter Care Teams Biology Tutor Relationship Specialty [place] [address] [facility] [address] [place] [address] PCP - General Pediatrics 05/22/18 documented as of this encounter
--- OUTSIDE RECORDS SUMMARY | 2024-05-27 16:32 | XMS_ITS | Encounter Summary ---
Author Organization [facility] Address [address] [place] [address] Care Team Providers Care Lab Systems Analyst Name Role Phone Gemma Yap MD Primary Care Provider + Encounter Details Date Type Department Care Team (Late st [facility]) Description 11/18/2004 Outpatient Historical [facility] Pediatrics - [facility] [address] [address] [facility] [address] [place] [address] Keegan Bartlett MD [address] [place] [address] Social History Tobacco Use Types Packs/Day Years Used Date Smoking Tobacco: Never Assessed Sex and Gender Information Value Date Recorded Sex Assigned at Not on file 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 Gender Identity Not on file Sexual Orientation Not on file documented as of this encounter Plan of Treatment Not on file documented as of this encounter Visit Diagnoses Not on filedocumented in this encounter Additional Health Concerns Infection Onset Date Last Indicated Resolved Time R/O COVID-19 03/09/2020 03/09/2020 03/11/2020 2:31 AM SALES MANAGEMENT TRAINEE documented as of this encounter Care Teams Lab Systems Analyst Relationship Specialty [place] [address] [facility] [address] [place] [address] PCP - General Pediatrics 05/22/18 documented as of this encounter
[2024-05-27 16:37] VITALS: BP 137/71; PULSE 93; RESP 18; TEMP 38.2; O2SAT 100
--- NOTE | 2024-05-27 17:08 | ED.URI ---
HPI - URI/Sore Throat General Chief Complaint: Upper Respiratory Infection Stated Complaint: sore throat and cough/fever/body ache Time Seen by Provider: 05/27/24 17:08 Source: patient Mode of arrival: ambulatory Limitations: no limitations History of Present Illness HPI Narrative: 23-year-old male presents with complaint of sore throat, fatigue, fever, headache since yesterday evening. No other symptoms. All systems reviewed and negative except as noted above. Related Data Allergies Allergy/AdvReac Type Severity Reaction Status Date / Time No Known Allergies Allergy Verified 05/27/24 16:41 Review of Systems Review of Systems: CONSTITUTIONAL: reports fever, chills, or sweats. EYES: Denies visual changes, redness, or discharge. ENT: Denies rhinorrhea, congestion . Reports sore throat. Denies otalgia. CARDIOVASCULAR: Denies chest pain, palpitations, or edema. RESPIRATORY: Denies cough or dyspnea. GASTROINTESTINAL: Denies abdominal pain, nausea, vomiting, or diarrhea. GENITOURINARY: Denies dysuria or hematuria. SKIN: Denies rash or itching. MUSCULOSKELETAL: Denies back pain, joint pain, or myalgia. NEUROLOGIC: Denies headache, numbness, or weakness. PSYCHIATRIC: Denies anxiety or depression. All other systems reviewed are negative, except as documented in HPI. [facility] Past Medical History Medical History (Updated 05/27/24 @ 17:13 by Lisa Lopez NP) Right arm fracture Surgical History Surgical History No significant past surgical history Social History Social History Smoking status: Smoker, status unknown Tobacco type: e-cigarettes/vaping Alcohol intake: current Drinks per week: 20 Substance use: never Substance use type: does not use Lack of Transportation: No Lack of Food: Never True Current Housing: I Have Housing Concerned About Future Housing: No Difficulty Paying Gas/Electric Bills: No Difficulty Paying for Meds: No Currently Unemployed: No Education: High School Diploma/GED Difficulty w/ Childcare or Family Care: No Spiritual care concerns: No Comments At time of signature, agree with nursing past medical, surgical, social and family history. There is no relevant family history pertinent to the presenting complaint. Exam Narrative: GENERAL: This is a well-nourished, well-developed patient, in no apparent distress. HEAD: normocephalic, atraumatic. EYES: PERRL. Sclera clear/white. Vision is grossly intact. EARS: External ears normal, auditory canals clear and without drainage, TMs normal without perforation. Hearing grossly intact. NOSE: External nose normal with no obvious nasal discharge, nares without redness, no rhinorrhea. THROAT: Mucous membranes moist, erythematous without significant swelling. No exudates. NECK: Neck supple, non-tender without lymphadenopathy, masses or thyromegaly. CARDIOVASCULAR: Regular rate and rhythm without murmurs, gallops, or rubs. RESPIRATORY: Clear to auscultation. Breath sounds equal bilaterally. No wheezes, rales, or rhonchi. SKIN: warm, Dry, intact with no suspicious lesions or rash, good texture and turgor. NEURO: awake, alert, and oriented to person, place and time. There were no obvious focal neurologic abnormalities. EXTREMITIES: No joint tenderness, effusion, or edema noted. Course Course Level of Care: Express Care Visit Vital Signs Vital signs: Vital Signs Temperature 38.2 C H 05/27/24 16:37 Pulse Rate 93 05/27/24 16:37 Respiratory Rate 18 05/27/24 16:37 Blood Pressure 137/71 05/27/24 16:37 Pulse Oximetry 100 05/27/24 16:37 Oxygen Delivery Room Air 05/27/24 16:37 Temperature 38.2 C H 05/27/24 16:37 Pulse Rate 93 05/27/24 16:37 Respiratory Rate 18 05/27/24 16:37 Blood Pressure 137/71 05/27/24 16:37 Pulse Oximetry 100 05/27/24 16:37 Oxygen Delivery Room Air 05/27/24 16:37 Reviewed MDM - URI/Sore Throat MDM Narrative Medical decision making narrative: positive rapid strep. Patient is alert, nontoxic. No difficulty swallowing. Will discharge with amoxicillin. Patient agrees with plan of care. Please be advised this is a medical document. It is intended for [id number] communication. It is written in medical language and may contain unfamiliar abbreviations or verbiage. Medical documents are intended to carry relevant information, facts as evident, and the clinical opinion of the practitioner at the time of the encounter. This report may have been done utilizing a voice recognition system. Attempts have been made to correct errors. However, there may be uncorrected grammatical, spelling, and recognition errors present. The file time of this note does not necessarily represent the time of service. Differential Diagnosis Differential diagnosis: Likely upper respiratory infection, sinusitis, viral infection and pharyngitis Lab Data Labs: Lab Results 05/27/24 05/27/24 Range/Units 17:10 17:11 POC Influenza A Ag Negative (Negative) POC Influenza B Ag Negative (Negative) POC SARS CoV-2 Ag Negative (Negative) POC Grp A Strep Screen Positive (Negative) Discharge Plan Discharge Clinical Impression: Strep throat Patient Disposition: Home, Self-Care Condition: Stable Instructions: Antibiotic Form, Strep Throat (ED) Additional Instructions: your strep test was positive today. Take antibiotic as prescribed until gone. Change toothbrush after taking antibiotic for 24 Hours. Take Tylenol or ibuprofen every 6-8 hours as needed for pain and fever. Drink plenty water and rest. See your primary care physician if symptoms are not improving. Patient Language: Chinese Prescriptions: New amoxicillin 500 mg tablet 500 mg PO Q12H 10 Days Qty: 20 0RF No Action naloxone 4 mg/actuation spray,non-aerosol 4 mg intranasal Q2M PRN (Reason: opioid overdose) Qty: 2 0RF Rx Instructions: spray 1 dose into ONE nostril; alternate nostrils w each dose until help arrives Follow-up/Referrals: PHYSICIAN,RN [employer] [Primary Care Provider] - Stand Alone Forms: Work/School Release IP Time of Disposition: 17:13
[2024-05-27 17:12] LABS: EDCOVIDSCREEN Negative (Negative); EDINFLUASCREEN Negative (Negative); EDINFLUBSCREEN Negative (Negative)
[2024-05-27 17:12] LABS: EDSTREPNEGPOS1 Positive (Negative)
== END 2024-05-27 17:21 | disposition home or self-care (01) ==
PROVIDERS: Emergency Provider Nurse Practitioner Family; Referring Provider Emergency Medicine
DX: J02.0 Streptococcal pharyngitis (principal); Z20.822 Contact with and (suspected) exposure to COVID-19; F17.290 Nicotine dependence, other tobacco product, uncomplicated
CPT/HCPCS: 87426; 87804; 87880; 99213; G0463